=== PATIENT | female | born 1980 | race Caucasian/White ===

== ENCOUNTER → 2016-12-15 | Outpatient (CLI) | payer MEDICARE, MEDICAID ==
[~2016-12-15] MED LIST: ACET50TA PO; AMLO5TAB2 PO; ASPI1TAB PO; BACT400T PO; BICI30EL PO; CALC1CAP31 PO; CELCEPT PO; CELL250C PO; CEPH2CAP PO; CLON-412 PO; CLONI1TA PO; COUM1TAB14 PO; ERGO500014 PO; LEVO250T PO; LISI10TA4 PO; LOSA25TA8 PO; MAG-400T7 PO; METO25TAB PO; METO50TA4 PO; MYFO180T PO; NORE0.353 PO; ORTHTAB6 PO; PHOS1TAB3 PO; PRED10TA2 PO; PRED5TA PO; PRED5TAB PO; PROBCAP4 PO; RENA800T7 PO; TACR05CAP PO; TACR1CAP3 PO; TOPR25TA PO; TYLE325T5 PO; VALC450T PO; VANC125C2 PO
[2016-12-15 12:59] LABS: BASO % 0.3 % (0.0-1.0); EOS # 0.2 K/mm3 (0.0-0.50); EOS % 1.9 % (0.0-3.0); LARGE UNSTAINED CELL # 0.1 K/mm3 (0.0-0.4); LARGE UNSTAINED CELL % 1.5 % (0.0-4.0); LYMPH # 0.8 K/mm3 (1.5-4.5); LYMPH % 10.1 % (24.0-44.0); MEAN CORPUSCULAR HEMOGLOBIN 31.3 pg (27.0-33.0); MEAN CORPUSCULAR HGB CONC 32.9 g/dl (32.0-36.5); MONO # 0.5 K/mm3 (0.0-0.8); MONO % 5.7 % (0.0-5.0); NEUTROPHILS # 6.5 K/mm3 (1.8-7.7); NEUTROPHILS % 80.4 % (36.0-66.0); PLATELET COUNT, AUTOMATED 203 k/mm3 (150-450); RED CELL DISTRIBUTION WIDTH 12.5 % (11.5-14.5); WHITE BLOOD COUNT 8.1 K/mm3 (4.0-10.0)
[2016-12-15 14:07] LABS: ALBUMIN 4.1 GM/DL (3.2-5.2); ALBUMIN/GLOBULIN RATIO 1.24 (1.00-1.93); BILIRUBIN,DIRECT 0.1 MG/DL (0.0-0.2); BILIRUBIN,TOTAL 0.5 MG/DL (0.2-1.0); CALCIUM LEVEL 8.7 MG/DL (8.5-10.1); CREATININE FOR GFR 1.31 MG/DL (0.55-1.02); GLOMERULAR FILTRATION RATE 49.2 (>60); MAGNESIUM LEVEL 1.6 MG/DL (1.8-2.4); PHOSPHORUS LEVEL 2.4 MG/DL (2.5-4.9); TOTAL PROTEIN 7.4 GM/DL (6.4-8.2)
== END | disposition home or self-care (01) ==
LOC: M SMT 10:02
PROVIDERS: ATTEND Internal Medicine Nephrology
DX: N18.5 Chronic kidney disease, stage 5 (principal); Z94.0 Kidney transplant status; Z79.899 Other long term (current) drug therapy; D84.9 Immunodeficiency, unspecified

== ENCOUNTER → 2017-01-19 | Outpatient (REF) | payer MEDICARE, OTHER, MEDICAID | LOC: M LAB REF 13:09 | PROVIDERS: ATTEND Internal Medicine Nephrology | DX: Z94.0 Kidney transplant status (principal) ==

== ENCOUNTER 2017-03-01 16:10 | Emergency (ER) | payer MEDICARE, MEDICAID ==
[~2017-03-01] VITALS: Ht 157.5 cm; Wt 62.6 kg
[2017-03-01] MEDS ORDERED: METO12TA PO (16:33)
[2017-03-01] MEDS ORDERED: TACR5CAP4 PO (16:33)
[2017-03-01] MEDS ORDERED: NS 1,000 ML IV ONE ×2 (17:15→18:15)
[2017-03-01] MEDS ORDERED: METOCLOPRAMIDE INJ 10MG/2ML VIAL (J2765) IV ONE (17:15)
[2017-03-01 17:40] LABS: BASO % 0.2 % (0.0-1.0); EOS # 0.1 K/mm3 (0.0-0.50); LARGE UNSTAINED CELL # 0.1 K/mm3 (0.0-0.4); LARGE UNSTAINED CELL % 0.8 % (0.0-4.0); LYMPH # 0.4 K/mm3 (1.5-4.5); LYMPH % 4.7 % (24.0-44.0); MEAN CORPUSCULAR HEMOGLOBIN 31.4 pg (27.0-33.0); MEAN CORPUSCULAR HGB CONC 32.2 g/dl (32.0-36.5); MEAN CORPUSCULAR VOLUME 97.4 fl (80.0-96.0); MONO # 0.5 K/mm3 (0.0-0.8); MONO % 6.6 % (0.0-5.0); NEUTROPHILS # 6.6 K/mm3 (1.8-7.7); NEUTROPHILS % 86.6 % (36.0-66.0); PLATELET COUNT, AUTOMATED 189 k/mm3 (150-450); WHITE BLOOD COUNT 7.6 K/mm3 (4.0-10.0)
[2017-03-01 17:54] LABS: ALBUMIN/GLOBULIN RATIO 1.33 (1.00-1.93); ALKALINE PHOSPHATASE 89 U/L (45-117); ALT/SGPT 39 U/L (12-78); ANION GAP 8 MEQ/L (8-16); AST/SGOT 26 U/L (15-37); BILIRUBIN,DIRECT 0.1 MG/DL (0.0-0.2); BILIRUBIN,TOTAL 0.4 MG/DL (0.2-1.0); BLOOD UREA NITROGEN 19 MG/DL (7-18); CALCIUM LEVEL 8.9 MG/DL (8.5-10.1); CARBON DIOXIDE LEVEL 24 MEQ/L (21-32); CHLORIDE LEVEL 107 MEQ/L (98-107); CREATININE FOR GFR 1.38 MG/DL (0.55-1.02); GLOMERULAR FILTRATION RATE 46.3 (>60); GLUCOSE, FASTING 94 MG/DL (70-105); POTASSIUM SERUM 4.3 MEQ/L (3.5-5.1); SODIUM LEVEL 139 MEQ/L (136-145)
[2017-03-01 18:00] LABS: CONTROL LINE HCG INT CTR LINE PRESENT
--- NOTE | 2017-03-01 18:50 | REPUSA ---
CT of the head Clinical history: Headache. Technique: Multiple axial CT images were obtained through the head without administration of contrast . Findings: The ventricles and sulci are symmetric bilaterally. There is no evidence of acute hemorrhag e or infarct. There is no midline shift, mass effect, or extra-axial fluid collection. The osseous st ructures are unremarkable. The visualized paranasal sinuses and mastoid air cells are clear. Impression: Negative study.
[2017-03-01] MEDS ORDERED: REGL10TA6 PO (20:48)
[2017-03-01 21:02] VITALS: BP 138/86
== END 2017-03-01 21:03 | disposition home or self-care (01) ==
LOC: M ED 18:10
DX: R11.2 Nausea with vomiting, unspecified (principal); N18.5 Chronic kidney disease, stage 5; Z94.0 Kidney transplant status; Z90.5 Acquired absence of kidney; I12.0 Hypertensive chronic kidney disease with stage 5 chronic kidney disease or end stage renal disease; R51 Headache; Z88.1 Allergy status to other antibiotic agents; Z79.899 Other long term (current) drug therapy; Z79.52 Long term (current) use of systemic steroids; Z79.82 Long term (current) use of aspirin
CPT/HCPCS: 70450; 80048; 80076; 81001; 83690; 84703; 85025; 87040; 87086; 93041; 96361; 96374; 99284; J2765

== ENCOUNTER → 2017-03-09 | Outpatient (CLI) | payer MEDICARE, MEDICAID ==
[~2017-03-09] MED LIST changes: +METO12TA PO; +REGL10TA6 PO; +TACR5CAP4 PO
[2017-03-09 12:43] LABS: BASO % 0.1 % (0.0-1.0); EOS % 1.1 % (0.0-3.0); LARGE UNSTAINED CELL # 0.1 K/mm3 (0.0-0.4); LARGE UNSTAINED CELL % 1.5 % (0.0-4.0); LYMPH # 1.2 K/mm3 (1.5-4.5); LYMPH % 26.2 % (24.0-44.0); MEAN CORPUSCULAR HEMOGLOBIN 30.5 pg (27.0-33.0); MEAN CORPUSCULAR HGB CONC 31.4 g/dl (32.0-36.5); MEAN CORPUSCULAR VOLUME 96.9 fl (80.0-96.0); MONO # 0.2 K/mm3 (0.0-0.8); MONO % 5.4 % (0.0-5.0); NEUTROPHILS % 65.7 % (36.0-66.0); PLATELET COUNT, AUTOMATED 176 k/mm3 (150-450); RED CELL DISTRIBUTION WIDTH 13.3 % (11.5-14.5); WHITE BLOOD COUNT 4.5 K/mm3 (4.0-10.0)
[2017-03-09 13:12] LABS: ALBUMIN 3.7 GM/DL (3.2-5.2); ALBUMIN/GLOBULIN RATIO 1.28 (1.00-1.93); BILIRUBIN,DIRECT 0.1 MG/DL (0.0-0.2); BILIRUBIN,TOTAL 0.4 MG/DL (0.2-1.0); CALCIUM LEVEL 8.3 MG/DL (8.5-10.1); CREATININE FOR GFR 1.27 MG/DL (0.55-1.02); MAGNESIUM LEVEL 1.4 MG/DL (1.8-2.4); PHOSPHORUS LEVEL 2.4 MG/DL (2.5-4.9); POTASSIUM SERUM 3.9 MEQ/L (3.5-5.1); TOTAL PROTEIN 6.6 GM/DL (6.4-8.2)
== END ==
LOC: M SMT 09:30
PROVIDERS: ATTEND Internal Medicine Nephrology
DX: N18.5 Chronic kidney disease, stage 5 (principal); D84.9 Immunodeficiency, unspecified; Z94.0 Kidney transplant status; Z79.899 Other long term (current) drug therapy

== ENCOUNTER → 2017-04-15 | Outpatient (CLI) | payer MEDICARE, MEDICAID ==
[2017-04-15 13:52] LABS: BASO % 0.7 % (0.0-1.0); EOS # 0.1 K/mm3 (0.0-0.50); EOS % 1.1 % (0.0-3.0); LARGE UNSTAINED CELL # 0.1 K/mm3 (0.0-0.4); LARGE UNSTAINED CELL % 1.9 % (0.0-4.0); LYMPH # 1.5 K/mm3 (1.5-4.5); LYMPH % 17.7 % (24.0-44.0); MEAN CORPUSCULAR HEMOGLOBIN 31.8 pg (27.0-33.0); MEAN CORPUSCULAR HGB CONC 32.2 g/dl (32.0-36.5); MEAN CORPUSCULAR VOLUME 98.8 fl (80.0-96.0); MONO # 0.5 K/mm3 (0.0-0.8); MONO % 5.8 % (0.0-5.0); NEUTROPHILS # 5.6 K/mm3 (1.8-7.7); NEUTROPHILS % 72.9 % (36.0-66.0); PLATELET COUNT, AUTOMATED 219 k/mm3 (150-450); RED CELL DISTRIBUTION WIDTH 13.2 % (11.5-14.5); WHITE BLOOD COUNT 7.7 K/mm3 (4.0-10.0)
[2017-04-15 14:11] LABS: ALBUMIN 3.9 GM/DL (3.2-5.2); CALCIUM LEVEL 9.1 MG/DL (8.5-10.1); CREATININE FOR GFR 1.39 MG/DL (0.55-1.02); GLOMERULAR FILTRATION RATE 45.9 (>60); PHOSPHORUS LEVEL 3.5 MG/DL (2.5-4.9); POTASSIUM SERUM 4.2 MEQ/L (3.5-5.1)
== END ==
LOC: M SMT 09:17
PROVIDERS: ATTEND Internal Medicine Nephrology
DX: Z94.0 Kidney transplant status (principal); N25.81 Secondary hyperparathyroidism of renal origin

== ENCOUNTER → 2017-05-11 | Outpatient (REF) | payer MEDICARE, MEDICAID | LOC: M LAB REF 17:34 | PROVIDERS: ATTEND Obstetrics & Gynecology | DX: Z01.419 Encounter for gynecological examination (general) (routine) without abnormal findings (principal); Z11.51 Encounter for screening for human papillomavirus (HPV) | CPT/HCPCS: 87624; G0123 ==

== ENCOUNTER → 2017-07-07 | Outpatient (CLI) | payer MEDICARE, MEDICAID ==
[~2017-07-07] MED LIST changes: -METO12TA PO; +METO1TAB87 PO; +RENA1TAB PO; -RENA800T7 PO
[2017-07-07 10:53] LABS: BASO % 0.4 % (0.0-1.0); EOS # 0.1 K/mm3 (0.0-0.50); EOS % 1.3 % (0.0-3.0); LARGE UNSTAINED CELL # 0.1 K/mm3 (0.0-0.4); LARGE UNSTAINED CELL % 1.9 % (0.0-4.0); LYMPH % 15.7 % (24.0-44.0); MEAN CORPUSCULAR HEMOGLOBIN 32.4 pg (27.0-33.0); MEAN CORPUSCULAR HGB CONC 32.7 g/dl (32.0-36.5); MEAN CORPUSCULAR VOLUME 99.1 fl (80.0-96.0); MONO # 0.4 K/mm3 (0.0-0.8); MONO % 6.4 % (0.0-5.0); NEUTROPHILS # 4.6 K/mm3 (1.8-7.7); NEUTROPHILS % 74.2 % (36.0-66.0); PLATELET COUNT, AUTOMATED 246 k/mm3 (150-450); RED CELL DISTRIBUTION WIDTH 13.6 % (11.5-14.5); WHITE BLOOD COUNT 6.2 K/mm3 (4.0-10.0)
[2017-07-07 11:05] LABS: ALBUMIN 3.8 GM/DL (3.2-5.2); ALBUMIN/GLOBULIN RATIO 1.27 (1.00-1.93); BILIRUBIN,DIRECT 0.1 MG/DL (0.0-0.2); BILIRUBIN,TOTAL 0.4 MG/DL (0.2-1.0); CALCIUM LEVEL 8.9 MG/DL (8.5-10.1); CREATININE FOR GFR 1.27 MG/DL (0.55-1.02); GLOMERULAR FILTRATION RATE 50.7 (>60); MAGNESIUM LEVEL 1.6 MG/DL (1.8-2.4); PHOSPHORUS LEVEL 2.8 MG/DL (2.5-4.9); POTASSIUM SERUM 4.2 MEQ/L (3.5-5.1); TOTAL PROTEIN 6.8 GM/DL (6.4-8.2)
== END ==
LOC: M SMT 08:58
PROVIDERS: ATTEND Internal Medicine Nephrology
DX: Z94.0 Kidney transplant status (principal); N18.5 Chronic kidney disease, stage 5; D84.9 Immunodeficiency, unspecified; Z79.899 Other long term (current) drug therapy

== ENCOUNTER → 2017-07-21 | Outpatient (CLI) | payer MEDICARE, MEDICAID ==
[2017-07-21 11:14] LABS: BASO % 0.3 % (0.0-1.0); EOS # 0.1 K/mm3 (0.0-0.50); EOS % 1.5 % (0.0-3.0); LARGE UNSTAINED CELL # 0.1 K/mm3 (0.0-0.4); LYMPH # 0.8 K/mm3 (1.5-4.5); LYMPH % 16.4 % (24.0-44.0); MEAN CORPUSCULAR HEMOGLOBIN 32.6 pg (27.0-33.0); MEAN CORPUSCULAR VOLUME 98.8 fl (80.0-96.0); MONO # 0.4 K/mm3 (0.0-0.8); NEUTROPHILS # 3.6 K/mm3 (1.8-7.7); NEUTROPHILS % 72.7 % (36.0-66.0); PLATELET COUNT, AUTOMATED 180 k/mm3 (150-450); RED CELL DISTRIBUTION WIDTH 13.2 % (11.5-14.5); WHITE BLOOD COUNT 4.9 K/mm3 (4.0-10.0)
[2017-07-21 11:42] LABS: ALBUMIN 3.9 GM/DL (3.2-5.2); ALBUMIN/GLOBULIN RATIO 1.3 (1.00-1.93); BILIRUBIN,DIRECT 0.1 MG/DL (0.0-0.2); BILIRUBIN,TOTAL 0.5 MG/DL (0.2-1.0); CALCIUM LEVEL 8.8 MG/DL (8.5-10.1); CREATININE FOR GFR 1.26 MG/DL (0.55-1.02); GLOMERULAR FILTRATION RATE 51.2 (>60); MAGNESIUM LEVEL 1.7 MG/DL (1.8-2.4); PHOSPHORUS LEVEL 2.2 MG/DL (2.5-4.9); POTASSIUM SERUM 4.4 MEQ/L (3.5-5.1); TOTAL PROTEIN 6.9 GM/DL (6.4-8.2)
== END ==
LOC: M SMT 10:08
PROVIDERS: ATTEND Internal Medicine Nephrology
DX: Z79.4 Long term (current) use of insulin (principal); D84.9 Immunodeficiency, unspecified; N18.6 End stage renal disease; Z79.899 Other long term (current) drug therapy

== ENCOUNTER → 2017-07-29 | Outpatient (CLI) | payer MEDICARE, MEDICAID ==
[2017-07-29 10:17] LABS: BASO % 0.2 % (0.0-1.0); EOS % 0.4 % (0.0-3.0); LARGE UNSTAINED CELL # 0.2 K/mm3 (0.0-0.4); LARGE UNSTAINED CELL % 1.8 % (0.0-4.0); LYMPH # 1.4 K/mm3 (1.5-4.5); MEAN CORPUSCULAR HEMOGLOBIN 31.7 pg (27.0-33.0); MEAN CORPUSCULAR HGB CONC 32.6 g/dl (32.0-36.5); MEAN CORPUSCULAR VOLUME 97.3 fl (80.0-96.0); MONO # 0.4 K/mm3 (0.0-0.8); MONO % 4.6 % (0.0-5.0); NEUTROPHILS # 7.1 K/mm3 (1.8-7.7); PLATELET COUNT, AUTOMATED 235 k/mm3 (150-450)
[2017-07-29 10:37] LABS: ALBUMIN 4.1 GM/DL (3.2-5.2); ALBUMIN/GLOBULIN RATIO 1.32 (1.00-1.93); BILIRUBIN,DIRECT 0.2 MG/DL (0.0-0.2); BILIRUBIN,TOTAL 0.7 MG/DL (0.2-1.0); CALCIUM LEVEL 8.8 MG/DL (8.5-10.1); CREATININE FOR GFR 1.26 MG/DL (0.55-1.02); GLOMERULAR FILTRATION RATE 51.2 (>60); MAGNESIUM LEVEL 1.6 MG/DL (1.8-2.4); PHOSPHORUS LEVEL 2.3 MG/DL (2.5-4.9); POTASSIUM SERUM 4.3 MEQ/L (3.5-5.1); TOTAL PROTEIN 7.2 GM/DL (6.4-8.2)
== END ==
LOC: M SMT 08:56
PROVIDERS: ATTEND Internal Medicine Nephrology
DX: Z94.0 Kidney transplant status (principal); N18.6 End stage renal disease; D84.9 Immunodeficiency, unspecified; Z79.899 Other long term (current) drug therapy

== ENCOUNTER → 2017-08-14 | Outpatient (CLI) | payer MEDICARE, MEDICAID ==
[2017-08-14 11:21] LABS: BASO % 0.2 % (0.0-1.0); EOS # 0.1 K/mm3 (0.0-0.50); EOS % 0.8 % (0.0-3.0); LARGE UNSTAINED CELL # 0.1 K/mm3 (0.0-0.4); LARGE UNSTAINED CELL % 1.3 % (0.0-4.0); LYMPH # 1.2 K/mm3 (1.5-4.5); MEAN CORPUSCULAR HEMOGLOBIN 31.6 pg (27.0-33.0); MEAN CORPUSCULAR HGB CONC 32.6 g/dl (32.0-36.5); MEAN CORPUSCULAR VOLUME 97.2 fl (80.0-96.0); MONO # 0.4 K/mm3 (0.0-0.8); MONO % 5.2 % (0.0-5.0); NEUTROPHILS # 6.1 K/mm3 (1.8-7.7); NEUTROPHILS % 77.4 % (36.0-66.0); PLATELET COUNT, AUTOMATED 199 k/mm3 (150-450); RED CELL DISTRIBUTION WIDTH 12.9 % (11.5-14.5); WHITE BLOOD COUNT 7.9 K/mm3 (4.0-10.0)
[2017-08-14 11:31] LABS: BILIRUBIN,TOTAL 0.5 MG/DL (0.2-1.0); CALCIUM LEVEL 8.2 MG/DL (8.5-10.1); CREATININE FOR GFR 1.24 MG/DL (0.55-1.02); GLOMERULAR FILTRATION RATE 52.1 (>60); PHOSPHORUS LEVEL 2.8 MG/DL (2.5-4.9); POTASSIUM SERUM 4.4 MEQ/L (3.5-5.1)
[2017-08-14 11:32] LABS: ALBUMIN 3.8 GM/DL (3.2-5.2); ALBUMIN/GLOBULIN RATIO 1.36 (1.00-1.93); BILIRUBIN,DIRECT 0.1 MG/DL (0.0-0.2); MAGNESIUM LEVEL 1.6 MG/DL (1.8-2.4); TOTAL PROTEIN 6.6 GM/DL (6.4-8.2)
== END ==
LOC: M SMT 08:44
PROVIDERS: ATTEND Internal Medicine Nephrology
DX: Z51.81 Encounter for therapeutic drug level monitoring (principal); Z79.899 Other long term (current) drug therapy; Z94.0 Kidney transplant status; N18.5 Chronic kidney disease, stage 5; D84.9 Immunodeficiency, unspecified

== ENCOUNTER → 2017-10-27 | Outpatient (REF) | payer MEDICARE, MEDICAID | LOC: M LAB REF 13:50 | PROVIDERS: ATTEND Internal Medicine Nephrology | DX: Z94.0 Kidney transplant status (principal) ==

== ENCOUNTER → 2017-12-23 | Outpatient (CLI) | payer MEDICARE, MEDICAID ==
[2017-12-23 09:42] LABS: BASO % 0.2 % (0.0-1.0); EOS # 0.1 10^3/uL (0.0-0.50); EOS % 0.6 % (0.0-3.0); HEMATOCRIT 39.5 % (36.0-47.0); HEMOGLOBIN 12.7 g/dl (12.0-16.0); IMMATURE GRANULOCYTE % 0.4 % (0-0); LYMPH # 1.6 10^3/uL (1.5-4.5); LYMPH % 16.6 % (24.0-44.0); MEAN CORPUSCULAR HGB CONC 32.2 g/dl (32.0-36.5); MEAN CORPUSCULAR VOLUME 96.3 fl (80.0-96.0); MONO # 0.7 10^3/uL (0.0-0.8); MONO % 7.3 % (0.0-5.0); NEUTROPHILS # 7.4 10^3/uL (1.8-7.7); NEUTROPHILS % 74.9 % (36.0-66.0); PLATELET COUNT, AUTOMATED 223 10^3/uL (150-450); RED CELL DISTRIBUTION WIDTH 13.6 % (11.5-14.5); WHITE BLOOD COUNT 9.9 10^3/uL (4.0-10.0)
[2017-12-23 09:49] LABS: APPEARANCE, URINE HAZY (CLEAR); BACTERIA, URINE AUTO NEGATIVE (NEGATIVE); BILIRUBIN, URINE AUTO NEGATIVE (NEGATIVE); BLOOD, URINE BLOOD NEGATIVE (NEGATIVE); COLOR, URINE YELLOW (YELLOW); GLUCOSE, URINE (UA) AUTO NEGATIVE (NEGATIVE); KETONE, URINE AUTO NEGATIVE (NEGATIVE); LEUKOCYTE ESTERASE, URINE AUTO TRACE (NEGATIVE); NITRITE, URINE AUTO NEGATIVE (NEGATIVE); PROTEIN, URINE AUTO NEGATIVE (NEGATIVE); RBC, URINE AUTO 4 /HPF (0-3); SPECIFIC GRAVITY URINE AUTO 1.012 (1.002-1.035); SQUAMOUS EPITHELIAL CELL UR AU 9 /HPF (0-6); UROBILINOGEN, URINE AUTO 0.2 mg/dL (0.0-2.0); WBC, URINE AUTO 0 /HPF (0-3)
[2017-12-23 10:08] LABS: ALBUMIN 3.7 GM/DL (3.2-5.2); ALBUMIN/GLOBULIN RATIO 1.23 (1.00-1.93); ALKALINE PHOSPHATASE 67 U/L (45-117); ALT/SGPT 18 U/L (12-78); ANION GAP 7 MEQ/L (8-16); AST/SGOT 15 U/L (7-37); BILIRUBIN,DIRECT < 0.1 MG/DL (0.0-0.2); BILIRUBIN,TOTAL 0.4 MG/DL (0.2-1.0); BLOOD UREA NITROGEN 16 MG/DL (7-18); CALCIUM LEVEL 8.7 MG/DL (8.5-10.1); CARBON DIOXIDE LEVEL 26 MEQ/L (21-32); CHLORIDE LEVEL 109 MEQ/L (98-107); CREATININE FOR GFR 1.29 MG/DL (0.55-1.30); GLOMERULAR FILTRATION RATE 49.8 (>60); GLUCOSE, FASTING 72 MG/DL (70-100); MAGNESIUM LEVEL 1.4 MG/DL (1.8-2.4); PHOSPHORUS LEVEL 3.1 MG/DL (2.5-4.9); POTASSIUM SERUM 4.1 MEQ/L (3.5-5.1); SODIUM LEVEL 142 MEQ/L (136-145); TOTAL PROTEIN 6.7 GM/DL (6.4-8.2)
[2017-12-23 10:16] LABS: CREATININE,RANDOM URINE 88.6 MG/DL; TOTAL PROTEIN,RANDOM URINE 10.2 MG/DL (0.0-12.0)
[2017-12-25 14:13] LABS: BK VIRUS BLOOD PCR1 Negative copies/mL (Negative)
== END ==
LOC: M SMT 08:45
DX: Z94.0 Kidney transplant status (principal); N18.5 Chronic kidney disease, stage 5; D84.9 Immunodeficiency, unspecified; Z79.899 Other long term (current) drug therapy
CPT/HCPCS: 83735

== ENCOUNTER → 2018-04-01 | Outpatient (CLI) | payer MEDICARE, MEDICAID ==
[2018-04-01 11:00] LABS: BASO % 0.5 % (0.0-1.0); EOS # 0.1 10^3/uL (0.0-0.50); EOS % 0.8 % (0.0-3.0); HEMATOCRIT 39.7 % (36.0-47.0); HEMOGLOBIN 12.8 g/dl (12.0-15.5); IMMATURE GRANULOCYTE % 0.7 % (0-3.0); LYMPH # 1.5 10^3/uL (1.5-4.5); LYMPH % 17.1 % (24.0-44.0); MEAN CORPUSCULAR HEMOGLOBIN 31.1 pg (27.0-33.0); MEAN CORPUSCULAR HGB CONC 32.2 g/dl (32.0-36.5); MEAN CORPUSCULAR VOLUME 96.6 fl (80.0-96.0); MONO # 0.7 10^3/uL (0.0-0.8); MONO % 8.1 % (0.0-5.0); NEUTROPHILS # 6.3 10^3/uL (1.8-7.7); NEUTROPHILS % 72.8 % (36.0-66.0); PLATELET COUNT, AUTOMATED 247 10^3/uL (150-450); RED BLOOD COUNT 4.11 10^6/uL (4.00-5.40); RED CELL DISTRIBUTION WIDTH 13.3 % (11.5-14.5); WHITE BLOOD COUNT 8.7 10^3/uL (4.0-10.0)
[2018-04-01 11:03] LABS: APPEARANCE, URINE CLEAR (CLEAR); BACTERIA, URINE AUTO NEGATIVE (NEGATIVE); BILIRUBIN, URINE AUTO NEGATIVE (NEGATIVE); BLOOD, URINE BLOOD 2+ (NEGATIVE); COLOR, URINE STRAW (YELLOW); GLUCOSE, URINE (UA) AUTO NEGATIVE (NEGATIVE); KETONE, URINE AUTO NEGATIVE (NEGATIVE); LEUKOCYTE ESTERASE, URINE AUTO TRACE (NEGATIVE); NITRITE, URINE AUTO NEGATIVE (NEGATIVE); PROTEIN, URINE AUTO NEGATIVE (NEGATIVE); RBC, URINE AUTO 1 /HPF (0-3); SPECIFIC GRAVITY URINE AUTO 1.008 (1.002-1.035); SQUAMOUS EPITHELIAL CELL UR AU 2 /HPF (0-6); UROBILINOGEN, URINE AUTO 0.2 mg/dL (0.0-2.0); WBC, URINE AUTO 2 /HPF (0-3)
[2018-04-01 11:39] LABS: CREATININE,RANDOM URINE 57.4 MG/DL; TOTAL PROTEIN,RANDOM URINE 6.1 MG/DL (0.0-12.0)
[2018-04-01 11:58] LABS: ALBUMIN 3.7 GM/DL (3.2-5.2); ALBUMIN/GLOBULIN RATIO 1.16 (1.00-1.93); ALKALINE PHOSPHATASE 59 U/L (45-117); ALT/SGPT 17 U/L (12-78); ANION GAP 7 MEQ/L (8-16); AST/SGOT 15 U/L (7-37); BILIRUBIN,DIRECT 0.1 MG/DL (0.0-0.2); BILIRUBIN,TOTAL 0.4 MG/DL (0.2-1.0); BLOOD UREA NITROGEN 23 MG/DL (7-18); CALCIUM LEVEL 8.7 MG/DL (8.5-10.1); CARBON DIOXIDE LEVEL 25 MEQ/L (21-32); CHLORIDE LEVEL 109 MEQ/L (98-107); CHOLESTEROL LEVEL 178 MG/DL (<200); CHOLESTEROL RISK RATIO 3.787 (<5); CREATININE FOR GFR 1.27 MG/DL (0.55-1.30); GLOMERULAR FILTRATION RATE 50.7 (>60); GLUCOSE, FASTING 75 MG/DL (70-100); HDL CHOLESTEROL 47 MG/DL (>40); LDL CHOLESTEROL 111.2 MG/DL (<100); MAGNESIUM LEVEL 1.4 MG/DL (1.8-2.4); NON-HDL-C 131 MG/DL; PHOSPHORUS LEVEL 3.2 MG/DL (2.5-4.9); SODIUM LEVEL 141 MEQ/L (136-145); TOTAL PROTEIN 6.9 GM/DL (6.4-8.2); TRIGLYCERIDES LEVEL 99 MG/DL (<150)
[2018-04-06 00:06] LABS: BK VIRUS BLOOD PCR1 Negative copies/mL (Negative); CMV QUANT DNA PCR (PLASMA) Negative (Negative)
== END ==
LOC: M SMT 08:52
DX: Z94.0 Kidney transplant status (principal); N18.5 Chronic kidney disease, stage 5; D84.9 Immunodeficiency, unspecified; Z79.899 Other long term (current) drug therapy
CPT/HCPCS: 83735

== ENCOUNTER → 2018-04-16 | Outpatient (REF) | payer MEDICARE, MEDICAID ==
[2018-04-20 00:06] LABS: FK 506 (TACROLIMUS) LABCORP 7.6 ng/mL (2.0-20.0)
== END ==
LOC: M LAB REF 13:07
DX: Z94.0 Kidney transplant status (principal)
CPT/HCPCS: 80197

== ENCOUNTER → 2018-05-04 | Outpatient (REF) | payer MEDICARE, MEDICAID ==
[2018-05-07 00:06] LABS: FK 506 (TACROLIMUS) LABCORP 6.2 ng/mL (2.0-20.0)
== END ==
LOC: M LAB REF 13:14
DX: Z94.0 Kidney transplant status (principal)
CPT/HCPCS: 80197

== ENCOUNTER → 2018-07-30 | Outpatient (REF) | payer MEDICARE, MEDICAID ==
[2018-08-03 08:06] LABS: FK 506 (TACROLIMUS) LABCORP 5.5 ng/mL (2.0-20.0)
== END ==
LOC: M LAB REF 13:23
DX: Z94.0 Kidney transplant status (principal)
CPT/HCPCS: 80197

== ENCOUNTER → 2018-11-19 | Outpatient (REF) | payer MEDICARE, MEDICAID ==
[~2018-11-19] MED LIST changes: +AMLO5TAB6 PO
== END ==
LOC: M LAB REF 12:48
PROVIDERS: ATTEND Internal Medicine Nephrology
DX: Z94.0 Kidney transplant status (principal)

== ENCOUNTER → 2019-02-15 | Outpatient (CLI) | payer MEDICARE ==
[2019-02-15 14:12] LABS: BASO % 0.3 % (0.0-1.0); EOS # 0.1 10^3/uL (0.0-0.50); HEMATOCRIT 39.5 % (36.0-47.0); HEMOGLOBIN 12.5 g/dl (12.0-15.5); LYMPH # 1.6 10^3/uL (1.5-4.5); LYMPH % 17.1 % (24.0-44.0); MEAN CORPUSCULAR HEMOGLOBIN 30.1 pg (27.0-33.0); MEAN CORPUSCULAR HGB CONC 31.6 g/dl (32.0-36.5); MEAN CORPUSCULAR VOLUME 95.2 fl (80.0-96.0); MONO # 0.8 10^3/uL (0.0-0.8); MONO % 8.9 % (0.0-5.0); NEUTROPHILS # 6.8 10^3/uL (1.8-7.7); NEUTROPHILS % 72.3 % (36.0-66.0); PLATELET COUNT, AUTOMATED 252 10^3/uL (150-450); RED BLOOD COUNT 4.15 10^6/uL (4.00-5.40); WHITE BLOOD COUNT 9.4 10^3/uL (4.0-10.0)
[2019-02-15 14:20] LABS: ALBUMIN 3.8 GM/DL (3.2-5.2); CALCIUM LEVEL 8.7 MG/DL (8.5-10.1); CREATININE FOR GFR 1.29 MG/DL (0.55-1.30); GLOMERULAR FILTRATION RATE 49.5 (>60); MAGNESIUM LEVEL 1.6 MG/DL (1.8-2.4); PHOSPHORUS LEVEL 2.6 MG/DL (2.5-4.9); POTASSIUM SERUM 3.8 MEQ/L (3.5-5.1)
[2019-02-15 15:07] LABS: APPEARANCE, URINE HAZY (CLEAR); BACTERIA, URINE AUTO NEGATIVE (NEGATIVE); BILIRUBIN, URINE AUTO NEGATIVE (NEGATIVE); BLOOD, URINE BLOOD 1+ (NEGATIVE); COLOR, URINE YELLOW (YELLOW); GLUCOSE, URINE (UA) AUTO NEGATIVE (NEGATIVE); KETONE, URINE AUTO NEGATIVE (NEGATIVE); LEUKOCYTE ESTERASE, URINE AUTO TRACE (NEGATIVE); NITRITE, URINE AUTO NEGATIVE (NEGATIVE); PROTEIN, URINE AUTO NEGATIVE (NEGATIVE); RBC, URINE AUTO 7 /HPF (0-3); SPECIFIC GRAVITY URINE AUTO 1.017 (1.002-1.035); SQUAMOUS EPITHELIAL CELL UR AU 6 /HPF (0-6); UROBILINOGEN, URINE AUTO 0.2 mg/dL (0.0-2.0); WBC, URINE AUTO 6 /HPF (0-3)
[2019-02-15 15:59] LABS: TOTAL PROTEIN,RANDOM URINE 16.5 MG/DL (0.0-12.0)
== END ==
LOC: M SMT 08:37
PROVIDERS: ATTEND Internal Medicine Nephrology
DX: N18.5 Chronic kidney disease, stage 5 (principal); D84.9 Immunodeficiency, unspecified; Z94.0 Kidney transplant status; Z79.899 Other long term (current) drug therapy

== ENCOUNTER → 2019-04-29 | Outpatient (REF) | payer MEDICARE ==
[~2019-04-29] MED LIST changes: -ACET50TA PO; -ASPI1TAB PO; +ASPI81TA26 PO; -BICI30EL PO; -ERGO500014 PO; +MAPA500T17 PO; +METO-1 PO; +METO1TAB63 PO; -METO25TAB PO; +PROG1CAP10 PO; +SODI1SOL12 PO; -TACR05CAP PO; -TOPR25TA PO; -VANC125C2 PO; +VANC125C3 PO; +VITA500045 PO
== END ==
LOC: M LAB REF 13:01
PROVIDERS: ATTEND Internal Medicine Nephrology
DX: Z94.0 Kidney transplant status (principal)

== ENCOUNTER → 2019-08-31 | Outpatient (CLI) | payer MEDICARE ==
[2019-08-31 08:36] LABS: BASO % 0.4 % (0.0-1.0); EOS # 0.1 10^3/uL (0.0-0.5); EOS % 1.3 % (0.0-3.0); HEMATOCRIT 41.3 % (36.0-47.0); HEMOGLOBIN 13.3 g/dl (12.0-15.5); LYMPH # 1.9 10^3/uL (1.5-5.0); LYMPH % 22.9 % (24.0-44.0); MEAN CORPUSCULAR HEMOGLOBIN 31.4 pg (27.0-33.0); MEAN CORPUSCULAR HGB CONC 32.2 g/dl (32.0-36.5); MEAN CORPUSCULAR VOLUME 97.6 fl (80.0-96.0); MONO # 0.6 10^3/uL (0.0-0.8); MONO % 6.9 % (0.0-5.0); NEUTROPHILS # 5.7 10^3/uL (1.5-8.5); NEUTROPHILS % 67.7 % (36.0-66.0); PLATELET COUNT, AUTOMATED 248 10^3/uL (150-450); RED BLOOD COUNT 4.23 10^6/uL (4.00-5.40); WHITE BLOOD COUNT 8.4 10^3/uL (4.0-10.0)
[2019-08-31 08:42] LABS: AMORPHOUS SEDIMENT SMALL (NEGATIVE); APPEARANCE, URINE HAZY (CLEAR); BACTERIA, URINE AUTO 1+ (NEGATIVE); BILIRUBIN, URINE AUTO NEGATIVE (NEGATIVE); BLOOD, URINE BLOOD 1+ (NEGATIVE); COLOR, URINE YELLOW (YELLOW); GLUCOSE, URINE (UA) AUTO NEGATIVE (NEGATIVE); KETONE, URINE AUTO NEGATIVE (NEGATIVE); LEUKOCYTE ESTERASE, URINE AUTO 2+ (NEGATIVE); MUCUS, URINE SMALL (NEGATIVE); NITRITE, URINE AUTO NEGATIVE (NEGATIVE); PROTEIN, URINE AUTO NEGATIVE (NEGATIVE); RBC, URINE AUTO 10 /HPF (0-3); SQUAMOUS EPITHELIAL CELL UR AU 10 /HPF (0-6); UROBILINOGEN, URINE AUTO 0.2 mg/dL (0.0-2.0); WBC, URINE AUTO 5 /HPF (0-3)
[2019-08-31 09:02] LABS: ALBUMIN 4.1 GM/DL (3.2-5.2); CALCIUM LEVEL 9.5 MG/DL (8.5-10.1); CREATININE FOR GFR 1.56 MG/DL (0.55-1.30); GLOMERULAR FILTRATION RATE 39.5 (>60); MAGNESIUM LEVEL 1.9 MG/DL (1.8-2.4); PHOSPHORUS LEVEL 2.7 MG/DL (2.5-4.9); POTASSIUM SERUM 3.9 MEQ/L (3.5-5.1)
[2019-08-31 09:08] LABS: TOTAL PROTEIN,RANDOM URINE 22.8 MG/DL (0.0-12.0)
== END ==
LOC: M LAB 07:46
PROVIDERS: ATTEND Internal Medicine Nephrology
DX: Z94.0 Kidney transplant status (principal); N18.5 Chronic kidney disease, stage 5; D84.9 Immunodeficiency, unspecified; Z79.899 Other long term (current) drug therapy

== ENCOUNTER → 2019-09-07 | Outpatient (CLI) | payer MEDICARE ==
[2019-09-07 08:35] LABS: BASO % 0.4 % (0.0-1.0); EOS # 0.1 10^3/uL (0.0-0.5); EOS % 1.2 % (0.0-3.0); HEMATOCRIT 40.4 % (36.0-47.0); HEMOGLOBIN 12.8 g/dl (12.0-15.5); LYMPH # 2.3 10^3/uL (1.5-5.0); LYMPH % 22.5 % (24.0-44.0); MEAN CORPUSCULAR HEMOGLOBIN 30.8 pg (27.0-33.0); MEAN CORPUSCULAR HGB CONC 31.7 g/dl (32.0-36.5); MEAN CORPUSCULAR VOLUME 97.3 fl (80.0-96.0); MONO # 0.8 10^3/uL (0.0-0.8); MONO % 8.3 % (0.0-5.0); NEUTROPHILS # 6.8 10^3/uL (1.5-8.5); NEUTROPHILS % 67.2 % (36.0-66.0); PLATELET COUNT, AUTOMATED 273 10^3/uL (150-450); RED BLOOD COUNT 4.15 10^6/uL (4.00-5.40); WHITE BLOOD COUNT 10.1 10^3/uL (4.0-10.0)
[2019-09-07 08:36] LABS: AMORPHOUS SEDIMENT SMALL (NEGATIVE); APPEARANCE, URINE CLEAR (CLEAR); BACTERIA, URINE AUTO NEGATIVE (NEGATIVE); BILIRUBIN, URINE AUTO NEGATIVE (NEGATIVE); BLOOD, URINE BLOOD 1+ (NEGATIVE); COLOR, URINE YELLOW (YELLOW); GLUCOSE, URINE (UA) AUTO NEGATIVE (NEGATIVE); KETONE, URINE AUTO NEGATIVE (NEGATIVE); LEUKOCYTE ESTERASE, URINE AUTO TRACE (NEGATIVE); MUCUS, URINE SMALL (NEGATIVE); NITRITE, URINE AUTO NEGATIVE (NEGATIVE); PROTEIN, URINE AUTO NEGATIVE (NEGATIVE); RBC, URINE AUTO 2 /HPF (0-3); SPECIFIC GRAVITY URINE AUTO 1.012 (1.002-1.035); SQUAMOUS EPITHELIAL CELL UR AU 1 /HPF (0-6); UROBILINOGEN, URINE AUTO 0.2 mg/dL (0.0-2.0); WBC, URINE AUTO 2 /HPF (0-3)
[2019-09-07 08:57] LABS: CREATININE,RANDOM URINE 93.3 MG/DL; TOTAL PROTEIN,RANDOM URINE 10.1 MG/DL (0.0-12.0)
[2019-09-07 08:58] LABS: CALCIUM LEVEL 9.4 MG/DL (8.5-10.1); CREATININE FOR GFR 1.56 MG/DL (0.55-1.30); GLOMERULAR FILTRATION RATE 39.5 (>60); MAGNESIUM LEVEL 1.7 MG/DL (1.8-2.4); PHOSPHORUS LEVEL 3.7 MG/DL (2.5-4.9); POTASSIUM SERUM 3.8 MEQ/L (3.5-5.1)
== END ==
LOC: M LAB 07:42
PROVIDERS: ATTEND Internal Medicine Nephrology
DX: Z94.0 Kidney transplant status (principal); N18.6 End stage renal disease; D48.9 Neoplasm of uncertain behavior, unspecified; Z79.899 Other long term (current) drug therapy

== ENCOUNTER → 2019-12-07 | Outpatient (CLI) | payer MEDICARE ==
[2019-12-07 08:12] LABS: BASO % 0.4 % (0.0-1.0); EOS # 0.1 10^3/uL (0.0-0.5); HEMATOCRIT 41.1 % (36.0-47.0); HEMOGLOBIN 13.1 g/dl (12.0-15.5); LYMPH # 2.3 10^3/uL (1.5-5.0); MEAN CORPUSCULAR HEMOGLOBIN 32.8 pg (27.0-33.0); MEAN CORPUSCULAR HGB CONC 31.9 g/dl (32.0-36.5); MONO # 0.8 10^3/uL (0.0-0.8); MONO % 7.9 % (0.0-5.0); NEUTROPHILS # 6.4 10^3/uL (1.5-8.5); PLATELET COUNT, AUTOMATED 228 10^3/uL (150-450); RED BLOOD COUNT 3.99 10^6/uL (4.00-5.40); WHITE BLOOD COUNT 9.7 10^3/uL (4.0-10.0)
[2019-12-07 08:14] LABS: APPEARANCE, URINE CLOUDY (CLEAR); BACTERIA, URINE AUTO 2+ (NEGATIVE); BILIRUBIN, URINE AUTO NEGATIVE (NEGATIVE); BLOOD, URINE BLOOD NEGATIVE (NEGATIVE); COLOR, URINE YELLOW (YELLOW); GLUCOSE, URINE (UA) AUTO NEGATIVE (NEGATIVE); KETONE, URINE AUTO NEGATIVE (NEGATIVE); LEUKOCYTE ESTERASE, URINE AUTO NEGATIVE (NEGATIVE); MUCUS, URINE SMALL (NEGATIVE); NITRITE, URINE AUTO NEGATIVE (NEGATIVE); PROTEIN, URINE AUTO NEGATIVE (NEGATIVE); RBC, URINE AUTO 2 /HPF (0-3); SPECIFIC GRAVITY URINE AUTO 1.016 (1.002-1.035); SQUAMOUS EPITHELIAL CELL UR AU 30 /HPF (0-6); UROBILINOGEN, URINE AUTO 0.2 mg/dL (0.0-2.0); WBC, URINE AUTO 2 /HPF (0-3)
[2019-12-07 08:34] LABS: ALBUMIN 4.1 GM/DL (3.2-5.2); CALCIUM LEVEL 9.2 MG/DL (8.5-10.1); CREATININE FOR GFR 1.38 MG/DL (0.55-1.30); GLOMERULAR FILTRATION RATE 45.6 (>60); MAGNESIUM LEVEL 1.6 MG/DL (1.8-2.4); PHOSPHORUS LEVEL 3.1 MG/DL (2.5-4.9); POTASSIUM SERUM 3.8 MEQ/L (3.5-5.1); TOTAL PROTEIN,RANDOM URINE 17.1 MG/DL (0.0-12.0)
== END ==
LOC: M LAB 07:35
PROVIDERS: ATTEND Internal Medicine Nephrology
DX: Z94.0 Kidney transplant status (principal); N18.6 End stage renal disease; D84.9 Immunodeficiency, unspecified; Z79.899 Other long term (current) drug therapy

== ENCOUNTER → 2019-12-28 | Outpatient (REF) | payer MEDICARE, MEDICAID | LOC: M SFHCWAGY 13:36 | PROVIDERS: ATTEND Obstetrics & Gynecology | DX: Z01.419 Encounter for gynecological examination (general) (routine) without abnormal findings (principal) | CPT/HCPCS: G0101; G0123; G0463 ==

== ENCOUNTER → 2020-01-12 | Outpatient (REF) | payer MEDICARE, MEDICAID | LOC: M LAB REF 13:40 | PROVIDERS: ATTEND Internal Medicine Nephrology | DX: Z94.0 Kidney transplant status (principal) ==

== ENCOUNTER → 2020-02-20 | Outpatient (REF) | payer MEDICARE, MEDICAID | LOC: M LAB REF 13:43 | PROVIDERS: ATTEND Internal Medicine Nephrology | DX: Z94.0 Kidney transplant status (principal) ==

== ENCOUNTER → 2020-04-25 | Outpatient (REF) | payer MEDICARE, MEDICAID ==
[~2020-04-25] MED LIST changes: -COUM1TAB14 PO; +COUM4TAB8 PO
[2020-04-25 17:53] LABS: APPEARANCE, URINE HAZY (CLEAR); BACTERIA, URINE AUTO NEGATIVE (NEGATIVE); BILIRUBIN, URINE AUTO NEGATIVE (NEGATIVE); BLOOD, URINE BLOOD NEGATIVE (NEGATIVE); COLOR, URINE YELLOW (YELLOW); GLUCOSE, URINE (UA) AUTO NEGATIVE (NEGATIVE); KETONE, URINE AUTO NEGATIVE (NEGATIVE); LEUKOCYTE ESTERASE, URINE AUTO TRACE (NEGATIVE); NITRITE, URINE AUTO NEGATIVE (NEGATIVE); PROTEIN, URINE AUTO NEGATIVE (NEGATIVE); RBC, URINE AUTO 2 /HPF (0-3); SPECIFIC GRAVITY URINE AUTO 1.018 (1.002-1.035); SQUAMOUS EPITHELIAL CELL UR AU 6 /HPF (0-6); UROBILINOGEN, URINE AUTO 0.2 mg/dL (0.0-2.0); WBC, URINE AUTO 1 /HPF (0-3)
[2020-04-25 18:03] LABS: BASO % 0.5 % (0.0-1.0); EOS # 0.1 10^3/uL (0.0-0.5); EOS % 1.8 % (0.0-3.0); HEMATOCRIT 39.5 % (36.0-47.0); HEMOGLOBIN 12.7 g/dl (12.0-15.5); LYMPH # 1.6 10^3/uL (1.5-5.0); LYMPH % 20.3 % (24.0-44.0); MEAN CORPUSCULAR HEMOGLOBIN 34.3 pg (27.0-33.0); MEAN CORPUSCULAR HGB CONC 32.2 g/dl (32.0-36.5); MEAN CORPUSCULAR VOLUME 106.8 fl (80.0-96.0); MONO # 0.7 10^3/uL (0.0-0.8); MONO % 8.4 % (0.0-5.0); NEUTROPHILS # 5.3 10^3/uL (1.5-8.5); NEUTROPHILS % 68.6 % (36.0-66.0); PLATELET COUNT, AUTOMATED 290 10^3/uL (150-450); WHITE BLOOD COUNT 7.8 10^3/uL (4.0-10.0)
[2020-04-25 18:18] LABS: TOTAL PROTEIN,RANDOM URINE 13.8 MG/DL (0.0-12.0)
[2020-04-25 18:20] LABS: ALBUMIN 3.6 GM/DL (3.2-5.2); ALT/SGPT 23 U/L (12-78); BILIRUBIN,DIRECT < 0.1 MG/DL (0.0-0.2); BILIRUBIN,TOTAL 0.3 MG/DL (0.2-1.0); BLOOD UREA NITROGEN 24 MG/DL (7-18); CALCIUM LEVEL 8.9 MG/DL (8.5-10.1); CARBON DIOXIDE LEVEL 26 MEQ/L (21-32); CHLORIDE LEVEL 107 MEQ/L (98-107); CREATININE FOR GFR 1.23 MG/DL (0.55-1.30); GLUCOSE, FASTING 78 MG/DL (70-100); MAGNESIUM LEVEL 1.8 MG/DL (1.8-2.4); PHOSPHORUS LEVEL 4.4 MG/DL (2.5-4.9); POTASSIUM SERUM 4.7 MEQ/L (3.5-5.1); SODIUM LEVEL 141 MEQ/L (136-145); TOTAL PROTEIN 7.2 GM/DL (6.4-8.2)
== END ==
LOC: M LAB REF 17:06
PROVIDERS: ATTEND Internal Medicine Nephrology
DX: Z94.0 Kidney transplant status (principal); N18.5 Chronic kidney disease, stage 5; D84.9 Immunodeficiency, unspecified; Z79.899 Other long term (current) drug therapy

== ENCOUNTER → 2021-03-07 | Outpatient (REF) | payer MEDICARE, MEDICAID ==
[~2021-03-07] MED LIST changes: +AMLO1TAB24 PO; -AMLO5TAB6 PO; +LISI10TA22 PO; -LISI10TA4 PO
== END ==
LOC: M LAB REF 16:39
PROVIDERS: ATTEND Internal Medicine Nephrology
DX: Z94.0 Kidney transplant status (principal)

== ENCOUNTER 2021-04-29 15:16 | Inpatient (IN) | payer MEDICAID, MEDICARE ==
[~2021-04-29] VITALS: Ht 160 cm; Wt 73.6 kg
[2021-04-29] MEDS ORDERED: ISOVUE-370 76% 100ML VIAL As Ordered ONE (17:06)
[2021-04-29 17:10] LABS: BASO % 0.2 % (0.0-1.0); EOS % 0.1 % (0.0-3.0); HEMATOCRIT 37.2 % (36.0-47.0); HEMOGLOBIN 12.2 g/dl (12.0-15.5); LYMPH # 0.7 10^3/uL (1.5-5.0); LYMPH % 5.8 % (24.0-44.0); MEAN CORPUSCULAR HEMOGLOBIN 34.4 pg (27.0-33.0); MEAN CORPUSCULAR HGB CONC 32.8 g/dl (32.0-36.5); MEAN CORPUSCULAR VOLUME 104.8 fl (80.0-96.0); MONO # 0.6 10^3/uL (0.0-0.8); NEUTROPHILS # 10.7 10^3/uL (1.5-8.5); NEUTROPHILS % 88.1 % (36.0-66.0); PLATELET COUNT, AUTOMATED 270 10^3/uL (150-450); RED BLOOD COUNT 3.55 10^6/uL (4.00-5.40); WHITE BLOOD COUNT 12.1 10^3/uL (4.0-10.0)
--- NOTE | 2021-04-29 17:53 | REPVR ---
PROCEDURE INFORMATION: Exam: CT Abdomen And Pelvis With Contrast Exam date and time: 04/29/2021 4:20 PM Age: 40 years old Clinical indication: Abdominal pain; Additional info: Rlq pain R/O appy vs donor kidney infection TECHNIQUE: Imaging protocol: Computed tomography of the abdomen and pelvis with contrast. Axial, coronal and sagittal reformatted images were created and reviewed. Radiation optimization: All CT scans at this facility use at least one of these dose optimization techniques: automated exposure control; mA and/or kV adjustment per patient size (includes targeted exams where dose is matched to clinical indication); or iterative reconstruction. Contrast material: ISOVUE 370; Contrast volume: 100 ml; Contrast route: INTRAVENOUS (IV); COMPARISON: No relevant prior studies available. FINDINGS: Liver: Unremarkable. Gallbladder and bile ducts: No radiodense gallstones. No biliary ductal dilatation. Pancreas: Unremarkable. Spleen: Unremarkable. Adrenal glands: Normal. No mass. Kidneys and ureters: Status post bilateral nephrectomies. Left lower quadrant renal transplant with associated 8 mm cortical cyst. No radiodense calculi. No hydronephrosis. Stomach and bowel: No bowel wall thickening. No obstruction. No pneumatosis. Appendix: Dilated, thickwalled, hyperemic appendix with moderate periappendiceal inflammatory change. Intraperitoneal space: 2.4 x 2 cm abscess abutting the appendiceal tip. No free air. Vasculature: Unremarkable. No aneurysm. Lymph nodes: No pathologically enlarged lymph nodes. Urinary bladder: Unremarkable as visualized. Reproductive: Unremarkable. Bones/joints: No acute osseous abnormality. Schmorl's node along the L3 superior endplate. Mild degenerative changes. Soft tissues: Grossly unremarkable. IMPRESSION: 1. Acute appendicitis with small associated periappendiceal abscess, as described above. 2. Additional findings, as above. COMMENTS: Consistent with the [employer]'s Incidental Findings Committee white paper (J Am Paco Radiol 2018): Any incidental renal lesion less than 1 cm or classified as too small to characterize, or any incidental cystic renal lesion characterized as simple-appearing, is likely benign. No follow-up imaging is recommended for these lesions per consensus recommendations based on imaging criteria. Electronically signed by: Trevor Spicer On 04/29/2021 17:53:19 PM
[2021-04-29] MEDS ORDERED: NS 1,000 ML IV SCH ×2 (18:00→18:45)
[2021-04-29] MEDS ORDERED: PIPERACILLIN/TAZOBACTAM SOD 3.375 GM in D5W MINI-BAG PLUS 50 ML IV ONE (18:10)
[2021-04-29] MEDS ORDERED: zolPIDEM TARTRATE 5 MG TAB PO PRN (18:45)
[2021-04-29] MEDS ORDERED: MAALOX 30 ML SUSP *UDC PO PRN (18:45)
[2021-04-29] MEDS ORDERED: MOM 30ML SUSPENSION UDC PO PRN (18:45)
[2021-04-29] MEDS ORDERED: AZAT50TA2 PO (19:28)
[2021-04-29] MEDS ORDERED: DEBL1TAB PO (19:28)
[2021-04-29] MEDS ORDERED: TACR1CAP3 PO (19:28)
[2021-04-29] MEDS ORDERED: TACR0.5C3 PO (19:28)
[2021-04-29] MEDS ORDERED: D31000TA2 PO (19:28)
[2021-04-29 19:30] LABS: RSV AMPLIFICATION NEGATIVE (NEGATIVE)
--- NOTE | 2021-04-29 19:49 | HPEPDOC ---
General Date of Admission 04/29/21 Date of Service: Apr 29, 2021 Chief Complaint The patient is a 40-year-old female admitted with a reason for visit of Flank Pain. Source: Patient, RN/MD, Old records Exam Limitations: No limitations Timing/Duration: Day(s) Severity: Moderate Associated Symptoms: Nausea, Vomiting, Weakness, Other (abdominal pain) History of Present Illness Ms. Zurita is a 40 year-old female with significant PMH of essential hypertension, s/p renal transplant x3, vitamin D deficiency secondary to CKD presents to [facility] ER with her reporting worsening RLQ sharp, stabbing pain that began several days prior, becoming worse this morning. She reports speaking with her Vendor Management Specialist, Dr. Martínez, who instructed her to come to the ER to be evaluated. She denies chest pain, palpations at this time. CT ABD/PELV: reveals left lower quadrant renal transplant having 8mm cortical cyst, no hydronephrosis seen. Appendix is dilated, hyperemic wall thickened with moderate periappendiceal inflammation. There is 2.4x3 cm abscess the the appendiceal tip, no free air seen on imaging study. Consult made in ER to Dr. Bowers, General Surgery who will follow up with patient after admission and Vendor Management Specialist Dr. Whitman consulted due to patients multiple renal transplants x 3. Labs: WBC 12.1; H&H 12.2/37.2, MCV 104.8, MCH 34.4, plts 270, absolute ne utrophil 88.1. POC ionized calcium 5.4; POC hematocrit 37. UA: +1 blood, negative for leukocytes, urine wbc & rbc; negative for nitrites and ketones. HCG negative, eFGR 53.2 creatinine 1.20 with hydration. Pro-NBP 1077-indicating possible CHF (not new elevated bnp occurrence). Procalcitonin <0.05. Due to patients chronic co-morbidities she will be admitted Inpatient Medical Surgical unit with IV antibiotics and hydration with possible IR in the morning to remove fluid from abscess at appendix head, resulting in longer than 2 night hospital stay. Home Medications Scheduled Amlodipine Besylate (Amlodipine Besylate) 5 Mg Tab, 5 MG PO QHS, (Reported) Azathioprine (Azathioprine) 50 Mg Tablet, 100 MG PO DAILY, (Reported) Calcitriol (Calcitriol) 0.25 Mcg Cap, 0.25 MCG PO DAILY, (Reported) Cholecalciferol (Vitamin D3) (Vitamin D3) 1,000 Unit Tablet, 1,000 UNIT PO DAILY, (Reported) Metoprolol Tartrate (Metoprolol Tartrate) 25 Mg Tab, 25 MG PO QHS, (Reported) Norethindrone (Deblitane) 0.35 Mg Tablet, 0.35 MG PO QHS, (Reported) Prednisone (Prednisone) 5 Mg Tab, 5 MG PO DAILY, (Reported) Tacrolimus (Tacrolimus) 1 Mg Capsule, 3 MG PO BID, (Reported) Tacrolimus (Tacrolimus) 0.5 Mg Capsule, 0.5 MG PO DAILY, (Reported) 3.5MG TOTAL QAM Allergies Coded Allergies: Cephalosporins (Verified Allergy, Unknown, 04/29/21) Past Medical History Medical History Essential hypertension, GERD, chronic UTI with bilateral nephrectomy, Renal failure since childhood, Diarrhea chronic Surgical History Right kidney transplant 15 years ago, 2nd Kidney transplant 2016,recently 3rd kidney transplant, tonsillectomy Family History Significant Family History: Noncontributory Social History * Smoker: Denies Alcohol: Denies Drugs: prescription drugs Psychosocial History: No pertinent psych hx A-FIB/CHADSVASC A-FIB History Current/History of A-Fib/PAF?: No Review of Systems Constitutional: Reports: Fatigue Eyes: Denies: Pain, Vision change, Conjunctivae inflammation, Eyelid inflammation, Redness, Other ENT: Denies: Head Aches, Ear Pain, Dysphagia, Sinus Congestion, Post Nasal Drip, Sore Throat, Epistaxis, Other Symptoms Skin: Reports: Dry; Denies: Rash, Lesions, Jaundice, Bruising, Itching, Breakdown, Nail Changes, Other Pulmonary: Denies: Dyspnea, Cough, Pleuritic Chest Pain, Other Symptoms Cardiovascular: Denies: Chest Pain, Palpitations, Orthopnea, Paroxysmal Noc. D yspnea, Edema, Lt Headedness, Other Symptoms Gastrointestinal: Reports: Nausea, Abdominal Pain, Diarrhea Genitourinary: Denies: Dysuria, Frequency, Incontinence, Hematuria, Retention, Other Symptoms Hematologic: Denies: Bruising, Bleeding Excessively, Petecchia, Purpura, Enlarged Lymph Nodes, Other Hematologic Endocrine: Denies: Polydipsia, Polyphagia, Polyuria, Heat Intolerance, Cold Intolerance, Other Endocrine Sx Musculoskeletal: Denies: Neck Pain, Back Pain, Shoulder Pain, Arm Pain, Hand Pain, Leg Pain, Foot Pain, Joint Pain, Muscle Pain, Spasms, Other Symptoms Neurological: Denies: Weakness, Numbness, Incoordination, Change in speech, Confusion, Seizures, Other Symptoms Psych: Reports: Mood Normal Physical Examination General Exam: Positive: Alert, Cooperative, No Acute Distress Eye Exam: Positive: PERRLA, Conjunctiva & lids normal, EOMI ENT Exam: Positive: Atraumatic, Mucous membr. moist/pink, Pharynx Normal Neck Exam: Positive: Supple Chest Exam: Positive: Clear to auscultation, Normal air movement Heart Exam: Positive: Regular Rhythm, Normal S1, Normal S2 Telemetry: Positive: No significant arrhythmia Abdomen Exam: Positive: BS Hypoactive, Soft, Tenderness (RLQ) Extremity Exam: Positive: Normal pulses, Other (AV Fistula Right upper arm) Skin Exam: Positive: Nl turgor and temperature Neuro Exam: Positive: Normal Speech, Cranial Nerves 3-12 NL Psych Exam: Positive: Mental status NL, Mood NL, Oriented x 3 Vital Signs Vital Signs Date Time Temp Pulse Resp B/P (MAP) Pulse Ox O2 Delivery O2 Flow Rate FiO2 04/29/21 16:58 04/29/21 15:17 97.7 85 16 99 Laboratory Data Labs 24H Laboratory Tests 2 04/29/21 16:54: Immature Granulocyte % (Auto) 0.8, Neutrophils (%) (Auto) 88.1H, Lymphocytes (%) (Auto) 5.8L, Monocytes (%) (Auto) 5.0, Eosinophils (%) (Auto) 0.1, Basophils (%) (Auto) 0.2, Neutrophils # (Auto) 10.7H, Lymphocytes # (Auto) 0.7L, Monocytes # (Auto) 0.6, Eosinophils # (Auto) 0.0, Basophils # (Auto) 0.0, Nucleated Red Blood Cells % (auto) 0.0, Urine Color YELLOW, Urine Appearance CLEAR, Urine pH 5.0, Urine Specific [place] 1.003, Urine Protein NEGATIVE, Urine Glucose (UA) NEGATIVE, Urine Ketones NEGATIVE, Urine Blood 1+H, Urine Nitrite NEGATIVE, Urine Bilirubin NEGATIVE, Urine Urobilinogen 0.2, Urine Leukocyte Esterase NEGATIVE, Urine WBC (Auto) 0, Urine RBC (Auto) 1, Urine Hyaline Casts (Auto) 0, Urine Bacteria (Auto) NEGATIVE, Urine Squamous Epithelial Cells 1, Urine Sperm (Auto) , POC Beta HCG, Quantitative < 5.0 04/29/21 17:06: POC Glucose (Misc Panel) 94, POC Sodium (Misc Panel) 138, POC Potassium (Misc Panel) 4.0, POC Chloride (Misc Panel) 106, POC Total CO2 (Misc Panel) 23.0, POC Blood Urea Nitrogen (Misc Panel 23, POC Ionized Calcium (Misc Panel) 5.4H, POC Creatinine (Misc Panel) 1.3, POC Hematocrit (Misc Panel) 37.0L CBC/BMP Laboratory Tests 04/29/21 16:54 04/29/21 19:50 Laboratory Tests 04/29/21 16:54 Problems (1) Appendicitis with abscess Status: Acute Problem Specific Plan: Monitor Clinically, Repeat Labs Problem Text: Ms. Zurita is a 40 year-old female admitted to [facility] for Acute Appendicitis with abscess and Gastroenteritis. Plan Admit to Inpatient Medical Surgical unit on remote telemetry and pulse oximeter Dr. Bowers, General Surgery, consulted from ED by ED provider with recommendations Continue IV antibiotics Zosyn 3.375 GM IV q 6-8 hours; add Flagyl 500 mg IV q 8 hours Keep patient NPO IV fluid NS at 125 ml/hr HOB elevated 45 degrees Check labs: Procalcitonin; TSH, CMP, Mag, and Lactate now (results pending) Check laboratory results and replace electrolytes as needed Pain management: Morphine 0.5 mg IV q 3 hours as needed for pain 1-10. History of Renal Transplant x3 with Vitamin D Deficiency-Chronic Referral to Nephrology/Renal made- whom I've spoken with and he will see patient in the morning. Recommendation: keep patient on current medication regimen Monitor I&O Continue home medications: Prednisone 5 po qam, Tacrolimus 3 mg po bid, Tacrolimus 0.5 mg taking 3,g qam bid;Calcitrol 0.25 mg q am, Vitamin D3 1000 units q am Check Tac level stat Monitor creatinine Avoid Nephrotoxic medications Essential Hypertension-Chronic Monitor labs Continue home medications: Amlodipine 5mg po qhs; Aspirin 81 mg po qam, and Metoprolol tartrate 25 mg tab taking 1/2 tab maribeth bid. GERD with IBD-chronic Protonix 40 mg IV bid Continue taking home medication: Azathioprine 50 mg taking 2 tabs (totaling 100 mg) po daily Oral contraceptive-chronic and controlled with home medication Deblitane (Norethindrone) 0.35 mg po qhs, she will continue taking medication. Full code. HCP-mom Ms. Jeanie Mckeon PPI Prophylaxis: Protonix 40 mg IV bid DVT Prophylaxis: Heparin 5000 IU SQ TID (HOLD for pending procedure in am under IR) & SCD's with CAROL BELTRAN BLE Discharge: Pending clinical course (2) Immunocompromised Status: Chronic Problem Specific Plan: Monitor Clinically (3) History of renal transplant Status: Acute Problem Specific Plan: Monitor Clinically, Repeat Labs (4) Essential hypertension Status: Chronic Problem Specific Plan: Monitor Clinically, Repeat Labs (5) GERD (gastroesophageal reflux disease) Status: Chronic Problem Specific Plan: Monitor Clinically (6) Vitamin D deficiency disease Status: Chronic Problem Specific Plan: Monitor Clinically Plan / VTE VTE Prophylaxis Ordered?: Yes Plan IVF: Continue Diet: Continue Current Activity: Bedrest Medications: Change to IV, Start Antibiotics Diagnostics: Check Labs, Repeat Labs in AM Advanced Directives: Health Care Proxy (HCP) (Mom- Ms. Jeanie Mckeon and Mr. Amor Sanders ) CAREY RICHTER Apr 29, 2021 18:44
[2021-04-29 20:03] LABS: BASO % 0.2 % (0.0-1.0); EOS % 0.3 % (0.0-3.0); HEMATOCRIT 35.1 % (36.0-47.0); HEMOGLOBIN 11.5 g/dl (12.0-15.5); LYMPH # 1.1 10^3/uL (1.5-5.0); LYMPH % 9.5 % (24.0-44.0); MEAN CORPUSCULAR HEMOGLOBIN 34.3 pg (27.0-33.0); MEAN CORPUSCULAR HGB CONC 32.8 g/dl (32.0-36.5); MEAN CORPUSCULAR VOLUME 104.8 fl (80.0-96.0); MONO # 0.6 10^3/uL (0.0-0.8); MONO % 5.4 % (2.0-8.0); NEUTROPHILS # 9.9 10^3/uL (1.5-8.5); NEUTROPHILS % 83.9 % (36.0-66.0); PLATELET COUNT, AUTOMATED 266 10^3/uL (150-450); RED BLOOD COUNT 3.35 10^6/uL (4.00-5.40); WHITE BLOOD COUNT 11.8 10^3/uL (4.0-10.0)
[2021-04-29] MEDS ORDERED: LOPERAMIDE 2 MG CAPLET PO PRN (20:05)
[2021-04-29 20:29] LABS: ALBUMIN 3.6 GM/DL (3.2-5.2); BILIRUBIN,DIRECT 0.2 MG/DL (0.0-0.2); BILIRUBIN,TOTAL 0.7 MG/DL (0.2-1.0); CALCIUM LEVEL 8.8 MG/DL (8.5-10.1); CREATININE FOR GFR 1.2 MG/DL (0.55-1.30); GLOMERULAR FILTRATION RATE 53.2 (>60); MAGNESIUM LEVEL 1.9 MG/DL (1.8-2.4); POTASSIUM SERUM 4.5 MEQ/L (3.5-5.1); TOTAL PROTEIN 7.6 GM/DL (6.4-8.2)
--- NOTE | 2021-04-29 20:46 | REPVR ---
PROCEDURE INFORMATION: Exam: XR Chest Exam date and time: 04/29/2021 8:20 PM Age: 40 years old Clinical indication: Dyspnea; Additional info: Abd pain, dyspnesa TECHNIQUE: Imaging protocol: XR of the chest. Views: 2 views. COMPARISON: CR Chest, 2 view PA, Lat 03/23/2016 3:43 PM FINDINGS: Lungs: Unremarkable. No consolidation. Pleural spaces: Unremarkable. No pleural effusion. No pneumothorax. Heart/Mediastinum: Unremarkable. No cardiomegaly. Bones/joints: Unremarkable. IMPRESSION: No acute radiographic findings. Electronically signed by: Trevor Spicer On 04/29/2021 20:46:12 PM
[2021-04-29] MEDS ORDERED: METOPROLOL TART 25 MG TABLET PO SCH (21:00)
[2021-04-29] MEDS: DOCUSATE SODIUM 100MG CAPSULE PO SCH (21:00)
[2021-04-29] MEDS ORDERED: amLODIPine 5 MG TAB PO SCH (21:00)
[2021-04-29 21:38] VITALS: BP 132/83
[2021-04-29 22:06] LABS: APPEARANCE, URINE CLEAR (CLEAR); BACTERIA, URINE AUTO NEGATIVE (NEGATIVE); BILIRUBIN, URINE AUTO NEGATIVE (NEGATIVE); BLOOD, URINE BLOOD 1+ (NEGATIVE); COLOR, URINE STRAW (YELLOW); GLUCOSE, URINE (UA) AUTO NEGATIVE (NEGATIVE); KETONE, URINE AUTO NEGATIVE (NEGATIVE); LEUKOCYTE ESTERASE, URINE AUTO NEGATIVE (NEGATIVE); MUCUS, URINE SMALL (NEGATIVE); NITRITE, URINE AUTO NEGATIVE (NEGATIVE); PROTEIN, URINE AUTO NEGATIVE (NEGATIVE); RBC, URINE AUTO 1 /HPF (0-3); SPECIFIC GRAVITY URINE AUTO 1.038 (1.002-1.035); SQUAMOUS EPITHELIAL CELL UR AU 0 /HPF (0-6); UROBILINOGEN, URINE AUTO 0.2 mg/dL (0.0-2.0); WBC, URINE AUTO 0 /HPF (0-3)
[2021-04-29] MEDS: PANTOPRAZOLE 40MG VIAL (C9113 PER 1) IV SCH (22:09)
[2021-04-29 22:10] VITALS: BP 132/83
[2021-04-29] MEDS: ACETAMINOPHEN TAB 650MG DOSE (2X325MG) PO PRN (22:10)
[2021-04-29] MEDS: metroNIDAZOLE 500 MG in IV 1 EA IV SCH (22:11)
[2021-04-29] MEDS: TACROLIMUS 1 MG CAP (J7507) PO SCH (23:25)
[2021-04-30] MEDS: PIPERACILLIN/TAZOBACTAM SOD 3.375 GM in D5W MINI-BAG PLUS 50 ML IV SCH ×2 (02:40→09:08)
[2021-04-30 06:00] VITALS: BP 118/74
[2021-04-30] MEDS ORDERED: HEPARIN SOD (PORCINE) 5000UNITS/ML 1ML VIAL/SYRINGE SC SCH (06:00)
[2021-04-30] MEDS: metroNIDAZOLE 500 MG in IV 1 EA IV SCH (06:11)
[2021-04-30] MEDS ORDERED: predniSONE 5 MG TAB PO SCH (09:00)
[2021-04-30] MEDS: DOCUSATE SODIUM 100MG CAPSULE PO SCH (09:00)
[2021-04-30] MEDS ORDERED: VITAMIN D 1,000 INTERNATIONAL UNITS TABLET PO SCH (09:00)
[2021-04-30] MEDS ORDERED: CALCITRIOL 0.25 MCG CAP (S0169) PO SCH (09:00)
[2021-04-30] MEDS ORDERED: TACROLIMUS 0.5 MG CAP PO SCH (09:00)
[2021-04-30] MEDS: PANTOPRAZOLE 40MG VIAL (C9113 PER 1) IV SCH (09:07)
[2021-04-30] MEDS: ACETAMINOPHEN TAB 650MG DOSE (2X325MG) PO PRN (09:09)
[2021-04-30] MEDS: TACROLIMUS 1 MG CAP (J7507) PO SCH (09:21)
[2021-04-30] MEDS ORDERED: AUGM875T28 PO (10:17)
--- NOTE | 2021-04-30 14:14 | DS.PDOC ---
Discharge Summary General Date of Admission Apr 29, 2021 at 18:44 Date of Discharge 04/30/2021 Discharge Summary PROCEDURES PERFORMED DURING STAY: [None]. ADMITTING DIAGNOSES: 1. . DISCHARGE DIAGNOSES: 1. . COMPLICATIONS/CHIEF COMPLAINT: Appendicitis With Abscess, Gastroenteritis. HISTORY OF PRESENT ILLNESS: . HOSPITAL COURSE: . DISCHARGE MEDICATIONS: Please see below. ALLERGIES: Please see below. PHYSICAL EXAMINATION ON DISCHARGE: VITAL SIGNS: Please see below. GENERAL: HEENT: NECK: CARDIOVASCULAR EXAMINATION: RESPIRATORY EXAMINATION: ABDOMINAL EXAMINATION: EXTREMITIES: SKIN: NEUROLOGICAL EXAMINATION: PSYCHIATRIC EXAMINATION: LABORATORY DATA: Please see below. IMAGING: PROGNOSIS: ACTIVITY: [As tolerated]. DIET: DISCHARGE PLAN: DISPOSITION: Home, Self-Care. DISCHARGE INSTRUCTIONS: 1. . ITEMS TO FOLLOWUP ON ON OUTPATIENT: 1. . DISCHARGE CONDITION: [Stable]. TIME SPENT ON DISCHARGE: Greater than minutes. Vital Signs/I&Os Vital Signs Date Time Temp Pulse Resp B/P (MAP) Pulse Ox O2 Delivery O2 Flow Rate FiO2 04/30/21 06:00 98.4 79 18 118/74 (89) 97 04/29/21 21:38 Room Air I&O- Last 24 Hours up to 6 AM 04/30/21 06:00 Intake Total 450 ml Output Total 550 ml Balance -100 ml Laboratory Data Labs 24H Laboratory Tests 2 04/29/21 16:54: Immature Granulocyte % (Auto) 0.8, Neutrophils (%) (Auto) 88.1H, Lymphocytes (%) (Auto) 5.8L, Monocytes (%) (Auto) 5.0, Eosinophils (%) (Auto) 0.1, Basophils (%) (Auto) 0.2, Neutrophils # (Auto) 10.7H, Lymphocytes # (Auto) 0.7L, Monocytes # (Auto) 0.6, Eosinophils # (Auto) 0.0, Basophils # (Auto) 0.0, Nucleated Red Blood Cells % (auto) 0.0, Urine Color YELLOW, Urine Appearance CLEAR, Urine pH 5.0, Urine Specific [place] 1.003, Urine Protein NEGATIVE, Urine Glucose (UA) NEGATIVE, Urine Ketones NEGATIVE, Urine Blood 1+H, Urine Nitrite NEGATIVE, Urine Bilirubin NEGATIVE, Urine Urobilinogen 0.2, Urine Leukocyte Esterase NEGATIVE, Urine WBC (Auto) 0, Urine RBC (Auto) 1, Urine Hyaline Casts (Auto) 0, Urine Bacteria (Auto) NEGATIVE, Urine Squamous Epithelial Cells 1, Urine Sperm (Auto) , POC Beta HCG, Quantitative < 5.0 04/29/21 17:06: POC Glucose (Misc Panel) 94, POC Sodium (Misc Panel) 138, POC Potassium (Misc Panel) 4.0, POC Chloride (Misc Panel) 106, POC Total CO2 (Misc Panel) 23.0, POC Blood Urea Nitrogen (Misc Panel 23, POC Ionized Calcium (Misc Panel) 5.4H, POC Creatinine (Misc Panel) 1.3, POC Hematocrit (Misc Panel) 37.0L 04/29/21 18:36: Coronavirus (COVID-19)(PCR) NEGATIVE, Influenza Type A (RT-PCR) NEGATIVE, Influenza Type B (RT-PCR) NEGATIVE, Respiratory Syncytial Virus (PCR) NEGATIVE 04/29/21 18:44: Lab Scanned Report LAB OTHER 04/29/21 19:50: Immature Granulocyte % (Auto) 0.7, Neutrophils (%) (Auto) 83.9H, Lymphocytes (%) (Auto) 9.5L, Monocytes (%) (Auto) 5.4, Eosinophils (%) (Auto) 0.3, Basophils (%) (Auto) 0.2, Neutrophils # (Auto) 9.9H, Lymphocytes # (Auto) 1.1L, Monocytes # (Auto) 0.6, Eosinophils # (Auto) 0.0, Basophils # (Auto) 0.0, Nucleated Red Blood Cells % (auto) 0.0, Anion Gap 6L, Glomerular Filtration Rate 53.2L, Lactic Acid Level 1.0, Calcium Level 8.8, Magnesium Level 1.9, Total Bilirubin 0.7, Direct Bilirubin 0.2, Aspartate Amino Transf (AST/SGOT) 11, Alanine Aminotransferase (ALT/SGPT) 11L, Alkaline Phosphatase 59, KX-Tom-I-Type Natriu retic Peptide 1077H, Total Protein 7.6, Albumin 3.6, Albumin/Globulin Ratio 0.9L, Amylase Level 55, Procalcitonin <0.05 04/29/21 21:54: Urine Color STRAW, Urine Appearance CLEAR, Urine pH 5.0, Urine Specific [place] 1.038, Urine Protein NEGATIVE, Urine Glucose (Auto)(UA) NEGATIVE, Urine Ketones (Auto) NEGATIVE, Urine Blood 1+H, Urine Nitrite NEGATIVE, Urine Bilirubin NEGATIVE, Urine Urobilinogen 0.2, Urine Leukocyte Esterase (Auto) NEGATIVE, Urine WBC (Auto) 0, Urine RBC (Auto) 1, Urine Hyaline Casts (Auto) 0, Urine Bacteria (Auto) NEGATIVE, Urine Squamous Epithelial Cells 0, Urine Mucus (Auto) SMALL, Urine Sperm (Auto) CBC/BMP Laboratory Tests 04/29/21 16:54 04/29/21 19:50 Discharge Medications Scheduled Amlodipine Besylate (Amlodipine Besylate) 5 Mg Tab, 5 MG PO QHS, (Reported) Amoxicillin/Potassium Clav (Augmentin 875-125 Tablet) 1 Each Tablet, 1 TAB PO BID Azathioprine (Azathioprine) 50 Mg Tablet, 100 MG PO DAILY, (Reported) Calcitriol (Calcitriol) 0.25 Mcg Cap, 0.25 MCG PO DAILY, (Reported) Cholecalciferol (Vitamin D3) (Vitamin D3) 1,000 Unit Tablet, 1,000 UNIT PO DAILY, (Reported) Metoprolol Tartrate (Metoprolol Tartrate) 25 Mg Tab, 25 MG PO QHS, (Reported) Norethindrone (Deblitane) 0.35 Mg Tablet, 0.35 MG PO QHS, (Reported) Prednisone (Prednisone) 5 Mg Tab, 5 MG PO DAILY, (Reported) Tacrolimus (Tacrolimus) 1 Mg Capsule, 3 MG PO BID, (Reported) Tacrolimus (Tacrolimus) 0.5 Mg Capsule, 0.5 MG PO DAILY, (Reported) 3.5MG TOTAL QAM Allergies Coded Allergies: Cephalosporins (Verified Allergy, Unknown, 04/29/21) NILTON LOZANO MD Apr 30, 2021 14:14
--- NOTE | 2021-05-01 08:59 | CR ---
NEPHROLOGY CONSULTATION DATE: 04/30/2021 REQUESTING PHYSICIAN: Dr. George Alston CONSULTING PHYSICIAN: Dr. Kaleb Whitman REASON FOR CONSULTATION: Management of immunosuppression in this patient with history of renal transplant, being admitted with infection. CHIEF COMPLAINT: The patient was sent to the Emergency Room from the [facility] because of nausea, vomiting and right sided abdominal pain. 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 Third renal allograft is functioning well with a baseline creatinine of about 1.2. Other comorbidities as mentioned below. She presented to the Nephrology Clinic with nausea, vomiting and persistent right lower quadrant pain. On examination she had tenderness and rebound tenderness in the right lower quadrant. She was sent to the Emergency Room for further evaluation. CAT scan of the abdomen and pelvis was done and there was found to be a 2.4 by 3 cm appendicular abscess. The patient was admitted under the Hospitalist service last night. A surgical consult was requested with Dr. Bowers. Nephrology service was called for further help in the management of this patient's immunosuppression. I already discussed the case with the admitting nurse practitioner, Faye Michaels last night. The patient continues to be on her home immunosuppression. She was started on IV antibiotics. She reports that she is feeling slightly better today as compared with yesterday. PAST MEDICAL HISTORY: The patient's past medical history is significant for: 1. Hypertension. 2. Gastroesophageal reflux disease. 3. History of urinary tract infections in the past. 4. End-stage renal disease. 5. Henoch-Schonlein purpura in childhood. PAST SURGICAL HISTORY: The patient's past surgical history is significant for: 1. Status post renal transplant live donor renal transplants x3. 2. Status post tonsillectomy in the past. ALLERGIES: She is allergic to cephalosporins. FAMILY HISTORY: No significant family history of end-stage renal disease requiring hemodialysis. SOCIAL HISTORY: The patient denies any smoking, illicit drug abuse or alcohol abuse. REVIEW OF SYSTEMS: REVIEW OF SYSTEMS: Constitutional: She denies any fevers or chills. She does report weakness. Eyes: She denies any blurry vision, double vision. ENT: She denies any dysphagia or odynophagia. Cardiovascular: She denies any chest pain or palpitations. Respiratory: She denies any shortness of breath or cough. Gastrointestinal: She reports nausea, vomiting and abdominal pain. Genitourinary: She denies any dysuria or hematuria. Musculoskeletal: She denies any muscle aches and pains. Endocrine: She denies any polyuria, polyphagia. Skin: She denies any rashes or ulcers. Psych: She denies any depression or anxiety. PAPERHANGER ASSISTANT: She denies any strokes or seizures. Hematological/Oncological: She denies any easy bleeding or bruising. All other review of systems is negative. PHYSICAL EXAMINATION: GENERAL APPEARANCE: The patient is awake, alert, oriented x3, laying in bed in no apparent distress. VITAL SIGNS: Temperature is 98.4 degrees Fahrenheit, blood pressure 118/74, pulse rate 79, respiratory rate of 18, saturating 97% on room air. HEAD AND NECK: Extraocular muscles intact. Pupils are equally round and reactive to light. Mucous membranes are moist. Neck is supple. There is no jugular venous distention. CARDIOVASCULAR: S1, S2, regular rate. EXTREMITIES: No edema of the bilateral lower extremities. RESPIRATORY: Chest is clear to auscultation bilaterally. Bilaterally currently no rales or rhonchi. ABDOMEN: Soft, positive bowel sounds, mild amount of tenderness in the right lower quadrant on deep palpation and mild amount of rebound tenderness is also noted. Old surgical scars are noted. Renal allograft in the right lower quadrant with no tenderness or bruits. MUSCULOSKELETAL: No clubbing, no cyanosis. Pulses are 2+. PAPERHANGER ASSISTANT: No focal deficits. Power is 5/5 in all extremities. LAB REVIEW: CBC showed a WBC count of 12.1 yesterday, 11.8 today. Hemoglobin is 11.5, platelet count 266. Urinalysis done today showed 1+ blood, no leukocyte esterase, no nitrites, no protein was noted. BMP showed sodium 139, potassium 4.5, chloride 109, bicarbonate 24, BUN 22, creatinine is 1.2. Glucose is 85. Lactic acid is 1. Pro BNP 1,077. Tacrolimus level is pending. IMAGING: A CAT scan of the abdomen and pelvis was done yesterday. It showed acute appendicitis with some small periappendiceal abscess, 2.4 cm in largest diameter. CURRENT INPATIENT MEDICATIONS: The patient's medications were all reviewed by myself. She is on Flagyl 500 mg IV q. 8 hourly. She was getting IV normal saline, Zosyn 3.375 grams IV q. 8 hourly, Tylenol p.r.n., Mylanta p.r.n. and Amlodipine 5 mg p.o. daily, Azathioprine 100 mg p.o. daily, Calcitriol 0.25 mcg p.o. daily, Colace 100 mg p.o. twice daily, Imodium p.r.n. for diarrhea, Metoprolol 25 mg p.o. q. h.s., Milk of Magnesia 30 mL p.o. daily, Protonix 40 mg IV twice daily, Prednisone 5 mg p.o. daily, Tacrolimus 3 mg p.o. twice daily, along with 0.5 mg p.o. daily, vitamin D 1,000 units p.o. daily and Ambien 5 mg p.o. q. h.s. p.r.n. for insomnia. ASSESSMENT AND PLAN: 1. Renal allograft status - The patient has appendicular abscess. I will continue the Tacrolimus current dose and Prednisone dose. I have asked the patient to hold Azathioprine for the next 4 days and restart it on the weekend. 2. Appendicular abscess - The patient was seen by Surgical service. No acute surgery was recommended. The patient is going to continue the antibiotics on discharge. She will follow up with Surgery as an outpatient and get possible I.R. drainage as an outpatient. 3. History of hypertension - blood pressure is controlled. Continue home dose of Amlodipine 5 mg p.o. daily. Continue Metoprolol 25 mg p.o. daily. 4. Secondary hyperparathyroidism - continue Calcitriol 0.25 mcg p.o. daily. 5. Disposition - The patient is optimized from a nephrology standpoint, to be discharged home. If needed, she will follow up with Dr. Jordan as an outpatient. Thank you for involving me in the care of this patient. I shall be happy to follow the patient with you if she stays in the hospital.
== END 2021-04-30 11:23 | disposition home or self-care (01) | DRG 372 ==
LOC: M ED 15:16 → M ED INP 18:44 → ENRESERV 19:40 → M MSPAV 21:37
PROVIDERS: ADMIT Internal Medicine; ATTEND Internal Medicine
DX: K35.33 Acute appendicitis with perforation, localized peritonitis, and gangrene, with abscess (principal); Z94.0 Kidney transplant status; I12.9 Hypertensive chronic kidney disease with stage 1 through stage 4 chronic kidney disease, or unspecified chronic kidney disease; E55.9 Vitamin D deficiency, unspecified; N18.9 Chronic kidney disease, unspecified; K21.9 Gastro-esophageal reflux disease without esophagitis; K52.9 Noninfective gastroenteritis and colitis, unspecified; K58.1 Irritable bowel syndrome with constipation; Z79.899 Other long term (current) drug therapy; Z88.1 Allergy status to other antibiotic agents; Z20.822 Contact with and (suspected) exposure to COVID-19

== ENCOUNTER → 2021-05-29 | Outpatient (CLI) | payer MEDICARE ==
[~2021-05-29] MED LIST changes: +AUGM875T28 PO; +AZAT50TA2 PO; +D31000TA2 PO; +DEBL1TAB PO; +TACR0.5C3 PO
== END ==
LOC: M LABSMTC 13:28
PROVIDERS: ATTEND Anesthesiology
DX: Z01.818 Encounter for other preprocedural examination (principal); Z11.52 Encounter for screening for COVID-19

== ENCOUNTER 2021-05-31 10:00 | Day surgery (SDC) | payer MEDICARE ==
[~2021-05-31] VITALS: Ht 160 cm; Wt 75.7 kg
[~2021-05-31 10:00] MED LIST changes: +ACETAMINOPHEN 1000MG 100ML IV BTL (OFIRMEV) (J0131 PER 10MG) As Ordered ONE; +GLYCOPYRROLATE INJ 0.2 MG/ML 2 ML VIAL As Ordered ONE; +KETOROLAC 60MG 2ML VIAL As Ordered ONE; +LIDOCAINE 2% INJ 100 MG/5 ML SYRINGE As Ordered ONE; +LR 1,000 ML IV ONE; +MIDAZOLAM INJ 2MG/2ML VIAL (J2250 PER 1MG) As Ordered ONE; +ONDANSETRON 4MG/2ML VIAL As Ordered ONE; +PHENYLephrine 500MCG 5ML (100MCG/ML) SYRINGE As Ordered ONE; +PIPERACILLIN/TAZOBACTAM SOD 3.375 GM in D5W MINI-BAG PLUS 50 ML IV ONE; +ROCURONIUM BROMIDE 50 MG/5 ML VIAL As Ordered ONE; +SUGAMMADEX SODIUM 500 MG/5 ML VIAL (BRIDION) As Ordered ONE; +dexameTHASONE 4 MG/ML 1ML VIAL (J1100 PER 1MG) As Ordered ONE; +ePHEDrine SULFATE 25 MG/5 ML(5MG/ML) SYRINGE As Ordered ONE; +fentaNYL 100 MCG/2 ML INJECTION (J3010) As Ordered ONE; +propofoL 200 MG/20 ML VIAL As Ordered ONE
[2021-05-31] MEDS ORDERED: LIDOCAINE 2% 100MG/5ML SDV (FOR ANES.) As Ordered ONE (11:27)
[2021-05-31] MEDS ORDERED: BUPIVACAINE/EPIN 0.25% 30 ML VIAL As Ordered ONE (12:03)
[2021-05-31] MEDS ORDERED: SUGAMMADEX SODIUM 500 MG/5 ML VIAL (BRIDION) As Ordered ONE (13:29)
[2021-05-31] MEDS ORDERED: ONDANSETRON 4MG/2ML VIAL As Ordered ONE (13:29)
[2021-05-31] MEDS ORDERED: fentaNYL 100 MCG/2 ML INJECTION (J3010) IV PRN (13:40)
[2021-05-31] MEDS ORDERED: oxyCODONE 5MG TAB PO PRN (13:40)
[2021-05-31] MEDS ORDERED: ONDANSETRON 4MG/2ML VIAL IV PRN (13:40)
[2021-05-31] MEDS ORDERED: HYDROMORPHONE HCL 0.5 MG/ 0.5 ML SYRINGE (J1170 PER 1) IV PRN (13:40)
[2021-05-31] MEDS ORDERED: LR 1,000 ML IV SCH (13:40)
--- NOTE | 2021-05-31 13:58 | RO ---
OPERATIVE NOTE DATE OF OPERATION: 05/31/2021 PREOPERATIVE DIAGNOSIS: Appendicitis. POSTOPERATIVE DIAGNOSIS: Appendicitis. PROCEDURE: Robotic appendectomy. SURGEON: Raudel Bowers DO RISK MANAGEMENT ANALYST: None. ANESTHESIA: General. EBL: 5. COMPLICATIONS: None. INDICATIONS FOR PROCEDURE: The patient is a 40-year-old female with history of multiple renal transplants in the past, presented to the hospital about six weeks ago with a perforated appendix with walled off abscess. She was treated with medical management at the time. However, due to her being on immunosuppressant medications I recommended that we get the appendix out now before it becomes inflamed again. Risks and benefits of the procedure not limited to but including bleeding, infection, hernias, damage to surrounding structures, need for further surgery were discussed in detail with the patient and informed consent was obtained. Procedure was planned. DESCRIPTION OF PROCEDURE: The patient was brought back to operating room 7. After sufficient sedation the abdomen was sterilely prepped and draped. Time out was done confirming proper patient and proper procedure. An 8 mm incision was made in the left upper quadrant, Veress needle inserted and abdomen insufflated to 15 mmHg. Veress needle was removed. An 8 mm Optiview port was used to gain access to the abdomen. Once the abdomen was entered there was one adhesion in the midline, no other signs of intraabdominal adhesions. I was able to place three more ports, one to the left mid abdomen and two in right upper quadrant. The robot was docked to the ports. The adhesion was taken down in the midline of the abdomen. Cecum was elevated superiorly, the appendix was easily identifiable. There were adhesions and there was some thickening and inflammation around the tip of the appendix. I was able to dissect that free using sharp dissection and cautery. Once the appendix was freely mobile I was able to elevate it up in the air, create a window through the mesoappendix using the scissors and then carefully dissect through the mesoappendix using bipolar cautery and scissors including through the appendiceal artery. Once that was completed, there were no signs of any bleeding, arm 3 and arm 1 were undocked. I was able to reach in with a grasper, elevate the appendix and ligate it with two PDS Endoloops. I then redocked those arms, elevated the appendix, cut across just distal to the Endoloops and then placed the appendix inside a 5 mm Endo Catch bag. Appendix was then removed from the abdomen. The robot was undocked. Ports were removed. Abdomen was desufflated. Skin incisions closed with 4-0 Vicryl subcuticular suture. The abdomen was cleaned and dried. Steri-Strips, 4 x 4 and tape were applied. This ended the procedure. MELIZA
[2021-05-31] MEDS ORDERED: NORCO, ANEXSIA 5/325MG TABLET (HYDROcodone/ACETAMINOPHEN) PO PRN (14:15)
[2021-05-31 15:20] VITALS: BP 117/70
== END 2021-05-31 15:20 | disposition home or self-care (01) ==
LOC: M SDC 10:00
PROVIDERS: ATTEND Surgery
DX: K35.80 Unspecified acute appendicitis (principal); R59.9 Enlarged lymph nodes, unspecified; I10 Essential (primary) hypertension; N17.8 Other acute kidney failure; Z94.0 Kidney transplant status; D69.0 Allergic purpura; E55.9 Vitamin D deficiency, unspecified; K21.9 Gastro-esophageal reflux disease without esophagitis; Z87.440 Personal history of urinary (tract) infections; Z79.899 Other long term (current) drug therapy; Z79.52 Long term (current) use of systemic steroids; Z88.1 Allergy status to other antibiotic agents
CPT/HCPCS: 44970; 81025; 88304; J0131; J1100; J2250; J2370; J2405; J2543; J3010; S2900

== ENCOUNTER → 2021-08-07 | Outpatient (CLI) | payer MEDICARE ==
[~2021-08-07] MED LIST changes: -ACETAMINOPHEN 1000MG 100ML IV BTL (OFIRMEV) (J0131 PER 10MG) As Ordered ONE; -GLYCOPYRROLATE INJ 0.2 MG/ML 2 ML VIAL As Ordered ONE; -KETOROLAC 60MG 2ML VIAL As Ordered ONE; -LIDOCAINE 2% INJ 100 MG/5 ML SYRINGE As Ordered ONE; -LR 1,000 ML IV ONE; -MIDAZOLAM INJ 2MG/2ML VIAL (J2250 PER 1MG) As Ordered ONE; -ONDANSETRON 4MG/2ML VIAL As Ordered ONE; -PHENYLephrine 500MCG 5ML (100MCG/ML) SYRINGE As Ordered ONE; -PIPERACILLIN/TAZOBACTAM SOD 3.375 GM in D5W MINI-BAG PLUS 50 ML IV ONE; -ROCURONIUM BROMIDE 50 MG/5 ML VIAL As Ordered ONE; -SUGAMMADEX SODIUM 500 MG/5 ML VIAL (BRIDION) As Ordered ONE; -dexameTHASONE 4 MG/ML 1ML VIAL (J1100 PER 1MG) As Ordered ONE; -ePHEDrine SULFATE 25 MG/5 ML(5MG/ML) SYRINGE As Ordered ONE; -fentaNYL 100 MCG/2 ML INJECTION (J3010) As Ordered ONE; -propofoL 200 MG/20 ML VIAL As Ordered ONE
[2021-08-07 08:51] LABS: BASO % 0.4 % (0.0-1.0); EOS # 0.2 10^3/uL (0.0-0.5); EOS % 1.6 % (0.0-3.0); HEMATOCRIT 38.6 % (36.0-47.0); HEMOGLOBIN 12.4 g/dl (12.0-15.5); LYMPH % 21.1 % (24.0-44.0); MEAN CORPUSCULAR HEMOGLOBIN 32.6 pg (27.0-33.0); MEAN CORPUSCULAR HGB CONC 32.1 g/dl (32.0-36.5); MEAN CORPUSCULAR VOLUME 101.6 fl (80.0-96.0); MONO # 0.9 10^3/uL (0.0-0.8); NEUTROPHILS # 6.2 10^3/uL (1.5-8.5); NEUTROPHILS % 66.3 % (36.0-66.0); PLATELET COUNT, AUTOMATED 253 10^3/uL (150-450); WHITE BLOOD COUNT 9.3 10^3/uL (4.0-10.0)
[2021-08-07 09:00] LABS: APPEARANCE, URINE HAZY (CLEAR); BACTERIA, URINE AUTO 1+ (NEGATIVE); BILIRUBIN, URINE AUTO NEGATIVE (NEGATIVE); BLOOD, URINE BLOOD 1+ (NEGATIVE); COLOR, URINE YELLOW (YELLOW); GLUCOSE, URINE (UA) AUTO NEGATIVE (NEGATIVE); KETONE, URINE AUTO NEGATIVE (NEGATIVE); LEUKOCYTE ESTERASE, URINE AUTO TRACE (NEGATIVE); NITRITE, URINE AUTO NEGATIVE (NEGATIVE); PROTEIN, URINE AUTO NEGATIVE (NEGATIVE); RBC, URINE AUTO 2 /HPF (0-3); SPECIFIC GRAVITY URINE AUTO 1.016 (1.002-1.035); SQUAMOUS EPITHELIAL CELL UR AU 3 /HPF (0-6); UROBILINOGEN, URINE AUTO 0.2 mg/dL (0.0-2.0); WBC, URINE AUTO 24 /HPF (0-3)
[2021-08-07 09:12] LABS: ALBUMIN 3.6 GM/DL (3.2-5.2); CREATININE FOR GFR 1.16 MG/DL (0.55-1.30); GLOMERULAR FILTRATION RATE 55.1 (>58); MAGNESIUM LEVEL 1.6 MG/DL (1.8-2.4); PHOSPHORUS LEVEL 3.2 MG/DL (2.5-4.9); POTASSIUM SERUM 3.7 MEQ/L (3.5-5.1); TOTAL PROTEIN,RANDOM URINE 14.5 MG/DL (0.0-12.0)
== END ==
LOC: M LAB 07:55
PROVIDERS: ATTEND Internal Medicine Nephrology
DX: Z94.0 Kidney transplant status (principal); N18.5 Chronic kidney disease, stage 5; D84.9 Immunodeficiency, unspecified; Z79.899 Other long term (current) drug therapy

== ENCOUNTER → 2021-09-06 | Outpatient (REF) | payer MEDICARE | LOC: M LAB REF 12:53 | PROVIDERS: ATTEND Internal Medicine Nephrology | DX: Z94.0 Kidney transplant status (principal) ==

== ENCOUNTER → 2021-12-09 | Outpatient (CLI) | payer MEDICARE | LOC: M RAD 09:41 | PROVIDERS: ATTEND Surgery | DX: R10.11 Right upper quadrant pain (principal) ==

== ENCOUNTER → 2021-12-26 | Outpatient (CLI) | payer MEDICARE ==
[2021-12-26 08:37] LABS: BASO % 0.6 % (0.0-1.0); EOS # 0.1 10^3/uL (0.0-0.5); EOS % 1.1 % (0.0-3.0); HEMATOCRIT 40.2 % (36.0-47.0); LYMPH # 1.1 10^3/uL (1.5-5.0); LYMPH % 17.7 % (24.0-44.0); MEAN CORPUSCULAR HEMOGLOBIN 31.8 pg (27.0-33.0); MEAN CORPUSCULAR HGB CONC 32.3 g/dl (32.0-36.5); MEAN CORPUSCULAR VOLUME 98.3 fl (80.0-96.0); MONO # 0.9 10^3/uL (0.0-0.8); MONO % 14.6 % (2.0-8.0); NEUTROPHILS # 4.1 10^3/uL (1.5-8.5); NEUTROPHILS % 65.5 % (36.0-66.0); PLATELET COUNT, AUTOMATED 233 10^3/uL (150-450); RED BLOOD COUNT 4.09 10^6/uL (4.00-5.40); WHITE BLOOD COUNT 6.2 10^3/uL (4.0-10.0)
[2021-12-26 08:58] LABS: ALBUMIN 3.7 GM/DL (3.2-5.2); CALCIUM LEVEL 8.9 MG/DL (8.5-10.1); CREATININE FOR GFR 1.4 MG/DL (0.55-1.30); GLOMERULAR FILTRATION RATE 44.3 (>58); PHOSPHORUS LEVEL 2.7 MG/DL (2.5-4.9); POTASSIUM SERUM 4.2 MEQ/L (3.5-5.1)
[2021-12-26 08:59] LABS: CREATININE,RANDOM URINE 93.3 MG/DL; TOTAL PROTEIN,RANDOM URINE 16.5 MG/DL (0.0-12.0)
[2021-12-26 09:09] LABS: APPEARANCE, URINE HAZY (CLEAR); BACTERIA, URINE AUTO 1+ (NEGATIVE); BILIRUBIN, URINE AUTO NEGATIVE (NEGATIVE); BLOOD, URINE BLOOD 1+ (NEGATIVE); COLOR, URINE YELLOW (YELLOW); GLUCOSE, URINE (UA) AUTO NEGATIVE (NEGATIVE); KETONE, URINE AUTO NEGATIVE (NEGATIVE); LEUKOCYTE ESTERASE, URINE AUTO 2+ (NEGATIVE); MUCUS, URINE SMALL (NEGATIVE); NITRITE, URINE AUTO NEGATIVE (NEGATIVE); PROTEIN, URINE AUTO NEGATIVE (NEGATIVE); RBC, URINE AUTO 10 /HPF (0-3); SPECIFIC GRAVITY URINE AUTO 1.013 (1.002-1.035); SQUAMOUS EPITHELIAL CELL UR AU 10 /HPF (0-6); UROBILINOGEN, URINE AUTO 0.2 mg/dL (0.0-2.0); WBC, URINE AUTO 4 /HPF (0-3)
[2021-12-26 17:34] LABS: MAGNESIUM LEVEL 1.8 MG/DL (1.7-2.2)
== END ==
LOC: M LAB 08:02
PROVIDERS: ATTEND Internal Medicine Nephrology
DX: Z94.0 Kidney transplant status (principal)

== ENCOUNTER → 2022-01-31 | Outpatient (CLI) | payer MEDICARE ==
[~2022-01-31] MED LIST changes: -D31000TA2 PO; +MYCO1TAB; +VITA100093 PO
== END ==
LOC: M EKG 13:40
PROVIDERS: ATTEND Anesthesiology
DX: Z01.818 Encounter for other preprocedural examination (principal); N28.9 Disorder of kidney and ureter, unspecified

== ENCOUNTER → 2022-02-03 | Outpatient (CLI) | payer MEDICARE | LOC: M LABSMTC 09:18 | PROVIDERS: ATTEND Anesthesiology | DX: Z01.818 Encounter for other preprocedural examination (principal); Z11.52 Encounter for screening for COVID-19 ==

== ENCOUNTER 2022-02-07 09:59 | Day surgery (SDC) | payer MEDICARE ==
[~2022-02-07] VITALS: Ht 160 cm; Wt 79.7 kg
[~2022-02-07 09:59] MED LIST changes: +CLINDAMYCIN 600 MG in IV 1 EA IV ONE; +DESFLURANE 240 ML INHALANT As Ordered ONE; +LIDOCAINE 2% 100MG/5ML SDV (FOR ANES.) As Ordered ONE; +LR 1,000 ML IV ONE; +MIDAZOLAM INJ 2MG/2ML VIAL (J2250 PER 1MG) As Ordered ONE; +ROCURONIUM BROMIDE 50 MG/5 ML VIAL As Ordered ONE; +fentaNYL 250 MCG/5 ML INJECTION As Ordered ONE; +propofoL 200 MG/20 ML VIAL As Ordered ONE
[2022-02-07] MEDS ORDERED: HYDROCORTISONE 100 MG/2 ML VIAL (J1720 PER 1) As Ordered ONE (10:33)
[2022-02-07] MEDS ORDERED: LIDOCAINE W/EPINEPHRINE 1% 20ML VIAL As Ordered ONE (10:34)
[2022-02-07] MEDS ORDERED: LACRILUBE (AKWA TEARS) OPHTH OINT 3.5 GM As Ordered ONE (11:12)
[2022-02-07] MEDS ORDERED: ACETAMINOPHEN 1000MG 100ML IV BTL (OFIRMEV) (J0131 PER 10MG) As Ordered ONE (11:31)
[2022-02-07] MEDS ORDERED: KETOROLAC 60MG 2ML VIAL As Ordered ONE (11:31)
[2022-02-07] MEDS ORDERED: ONDANSETRON 4MG/2ML VIAL As Ordered ONE (11:32)
[2022-02-07] MEDS ORDERED: dexameTHASONE 4 MG/ML 1ML VIAL (J1100 PER 1MG) As Ordered ONE (11:32)
[2022-02-07] MEDS ORDERED: METOCLOPRAMIDE INJ 10MG/2ML VIAL (J2765 PER 1) As Ordered ONE (11:32)
[2022-02-07] MEDS ORDERED: SUGAMMADEX SODIUM 500 MG/5 ML VIAL (BRIDION) As Ordered ONE (11:34)
[2022-02-07] MEDS ORDERED: oxyCODONE 5MG TAB PO PRN (12:35)
[2022-02-07] MEDS ORDERED: LR 1,000 ML IV SCH (12:35)
[2022-02-07] MEDS ORDERED: HYDROMORPHONE HCL 0.5 MG/ 0.5 ML SYRINGE (J1170 PER 1) IV PRN (12:35)
[2022-02-07] MEDS ORDERED: ONDANSETRON 4MG/2ML VIAL IV PRN (12:35)
[2022-02-07] MEDS ORDERED: NORCO, ANEXSIA 5/325MG TABLET (HYDROcodone/ACETAMINOPHEN) PO PRN (12:35)
[2022-02-07] MEDS: fentaNYL 100 MCG/2 ML INJECTION IV PRN ×2 (12:53→12:58)
[2022-02-07 14:35] VITALS: BP 115/61
== END 2022-02-07 14:45 | disposition home or self-care (01) ==
LOC: M SDC 09:59
PROVIDERS: ATTEND Surgery
DX: K43.0 Incisional hernia with obstruction, without gangrene (principal); I10 Essential (primary) hypertension; Z94.0 Kidney transplant status; E55.9 Vitamin D deficiency, unspecified; Z87.440 Personal history of urinary (tract) infections; Z88.1 Allergy status to other antibiotic agents; Z79.899 Other long term (current) drug therapy; Z79.52 Long term (current) use of systemic steroids
CPT/HCPCS: 49655; 81025; C1781; J0131; J1100; J1720; J1885; J2250; J2405; J2765; J3010; S2900

== ENCOUNTER 2022-09-10 16:16 | Outpatient (CLI) | payer MEDICARE ==
[~2022-09-10] VITALS: Ht 167.6 cm; Wt 81.4 kg
[~2022-09-10 16:16] MED LIST changes: +ALBUTEROL 90 MCG/ACT 8GM HFA INHALER INH PRN; +ALBUTEROL SULFATE 2.5 MG/0.5 ML INH NEB SOLN INH PRN; -AZAT50TA2 PO; +AZAT50TA37 PO; -CLINDAMYCIN 600 MG in IV 1 EA IV ONE; -DESFLURANE 240 ML INHALANT As Ordered ONE; +EPINEPHrine INJ 1 MG/ML 1ML AMP IM PRN; -LIDOCAINE 2% 100MG/5ML SDV (FOR ANES.) As Ordered ONE; -LR 1,000 ML IV ONE; -MIDAZOLAM INJ 2MG/2ML VIAL (J2250 PER 1MG) As Ordered ONE; -ROCURONIUM BROMIDE 50 MG/5 ML VIAL As Ordered ONE; +diphenhydrAMINE 50MG/ML VIAL (J1200) IV PRN; -fentaNYL 250 MCG/5 ML INJECTION As Ordered ONE; +methylPREDNISolone 125MG 2ML VIAL IV PRN; -propofoL 200 MG/20 ML VIAL As Ordered ONE
[2022-09-10 16:47] VITALS: BP 137/83
[2022-09-10] MEDS ORDERED: NS 1,000 ML IV SCH (17:10)
[2022-09-10 17:23] VITALS: BP 137/83
[2022-09-10 17:41] VITALS: BP 125/72
[2022-09-10] MEDS ORDERED: BEBTELOVIMAB 175MG 2ML VIAL (EUA) IV ONE (18:00)
[2022-09-10 18:28] VITALS: BP 131/83
== END 2022-09-10 18:30 | disposition home or self-care (01) ==
LOC: M OPCLI4PR 16:16
PROVIDERS: ATTEND Internal Medicine Nephrology
DX: U07.1 COVID-19 (principal); Z88.8 Allergy status to other drugs, medicaments and biological substances

== ENCOUNTER → 2022-09-24 | Outpatient (REF) | payer MEDICARE ==
[~2022-09-24] MED LIST changes: -ALBUTEROL 90 MCG/ACT 8GM HFA INHALER INH PRN; -ALBUTEROL SULFATE 2.5 MG/0.5 ML INH NEB SOLN INH PRN; -EPINEPHrine INJ 1 MG/ML 1ML AMP IM PRN; -diphenhydrAMINE 50MG/ML VIAL (J1200) IV PRN; -methylPREDNISolone 125MG 2ML VIAL IV PRN
== END ==
LOC: M LAB REF 17:29
PROVIDERS: ATTEND Internal Medicine Nephrology
DX: Z94.0 Kidney transplant status (principal)

== ENCOUNTER → 2023-02-25 | Outpatient (CLI) | payer MEDICARE | LOC: M WHC 11:08 | PROVIDERS: ATTEND Family Medicine | DX: Z12.31 Encounter for screening mammogram for malignant neoplasm of breast (principal) ==

== ENCOUNTER → 2023-04-17 | Outpatient (REF) | payer MEDICARE | LOC: M LAB REF 17:01 | PROVIDERS: ATTEND Internal Medicine Nephrology | DX: Z94.0 Kidney transplant status (principal) ==

== ENCOUNTER → 2023-07-30 | Outpatient (REF) | payer MEDICARE | LOC: M LAB REF 17:21 | PROVIDERS: ATTEND Internal Medicine Nephrology | DX: Z94.0 Kidney transplant status (principal) ==

== ENCOUNTER → 2023-11-24 | Outpatient (REF) | payer MEDICARE | LOC: M LAB REF 17:24 | PROVIDERS: ATTEND Family Medicine | DX: Z01.419 Encounter for gynecological examination (general) (routine) without abnormal findings (principal) | CPT/HCPCS: 87624; G0123 ==

== ENCOUNTER → 2023-12-01 | Outpatient (REF) | payer MEDICARE | LOC: M LAB REF 17:12 | PROVIDERS: ATTEND Internal Medicine Nephrology | DX: Z94.0 Kidney transplant status (principal) ==

== ENCOUNTER → 2024-05-30 | Outpatient (REF) | payer MEDICARE | LOC: M LAB REF 17:20 | PROVIDERS: ATTEND Internal Medicine Nephrology | DX: Z94.0 Kidney transplant status (principal) ==

== ENCOUNTER → 2024-11-28 | Outpatient (REF) | payer MEDICARE | LOC: M LAB REF 17:31 | PROVIDERS: ATTEND Internal Medicine Nephrology | DX: Z94.0 Kidney transplant status (principal) ==

== ENCOUNTER → 2025-06-01 | Outpatient (REF) | payer MEDICARE, OTHER ==
[~2025-06-01] MED LIST changes: +VANC125C13 PO; -VANC125C3 PO
== END ==
LOC: M LAB REF 17:17
PROVIDERS: ATTEND Internal Medicine Nephrology
DX: Z94.0 Kidney transplant status (principal)

== ENCOUNTER → 2025-07-18 | Outpatient (CLI) | payer MEDICARE, OTHER | LOC: M SOG 10:40 | PROVIDERS: ATTEND Physician Assistant | DX: M25.571 Pain in right ankle and joints of right foot (principal) ==